=== PATIENT | female | born 1945 | race Caucasian/White ===

== ENCOUNTER 2016-09-22 10:57 | Emergency (ER) | payer MEDICARE, OTHER ==
[~2016-09-22] VITALS: Ht 160 cm; Wt 61.8 kg
[~2016-09-22 10:57] MED LIST: CHLO5CAP37 PO; CHOL50006 PO; DIAZ5 PO; DICY20TA10 PO; DYAZ37.5 PO; MAXA10TA2 PO; QUES4POW2 PO; REME15TA PO; SUMA50 PO; TIMO0.2517 EACH EYE; TOPA100T11 PO; ZOLO100T PO
[2016-09-22 11:00] VITALS: BP 118/83; PULSE 62; RESP 16; TEMP 98.2; O2SAT 97
[2016-09-22] MEDS ORDERED: OMEP20TA PO (11:23)
[2016-09-22] MEDS ORDERED: SUMA25TA2 PO (11:23)
--- NOTE | 2016-09-22 11:32 | PD ---
HPI Chief Complaint: Dizziness Time Seen by Provider: 11:29 Travel History International Travel<30 days: No Contact w/Intl Traveler<30days: No Traveled to known affect area: No History of Present Illness HPI Patient presents with complaints of more severe chronic vertigo. Undergoing physical therapy. Reports a history of migraines. Reports a headache last night for which she took rxrf-uqq-zlizlkl medication. Reports that the last time her vertigo was exacerbated she had a urinary tract infection. Reports urinary frequency. Denies any hematuria or pain on urination. Denies any nausea vomiting diarrhea or fever. No new rashes. She is not taking any meclizine. PFSH Past Medical History Hx Anticoagulant Therapy: No Arthritis: Yes Asthma: No Anxiety: Yes Depression: Yes Cancer: No Cardiovascular Problems: Yes (HTN) High Cholesterol: No Chest Pain: No Congestive Heart Failure: No COPD: No Cerebrovascular Accident: No Diabetes: No Diminished Hearing: No Diverticulitis: Yes Endocrine: No Gastrointestinal Disorders: Yes (IBS) GERD: No Genitourinary: Yes (frequent uti's) Headaches: Yes Hepatitis: No Hiatal Hernia: No Hypertension: Yes Immune Disorder: No Kidney Stones: Yes Musculoskeletal: Yes Neurologic: Yes Psychiatric: Yes Reproductive: No Respiratory: No Migraines: Yes Myocardial Infarction: No Renal Failure: No Seizures: No Sleep Apnea: No Thyroid Disease: No Ulcer: No Influenza Vaccination: No Menopausal: Yes Past Surgical History Abdominal Surgery: Yes (Bowel resection) Appendectomy: Yes Cardiac Surgery: No Cholecystectomy: Yes Ear Surgery: No Endocrine Surgery: No Eye Surgery: No Genitourinary Surgery: No Gynecologic Surgery: Yes (HYSTERECTOMY) Hysterectomy: Yes Oral Surgery: No Thoracic Surgery: No Other Surgery: Yes Social History Alcohol Use: No Tobacco Use: Yes (1 ppd of cigs) Substance Use: No Allergies-Medications (Allergen,Severity, Reaction): Coded Allergies: No Known Allergies (Verified , 09/22/16) Reported Meds & Prescriptions Reported Meds & Active Scripts Active Zoloft (Sertraline HCl) 100 Mg Tab 100 Mg PO 1 1/2 DAILY Valium (Diazepam) 5 Mg Tab 5 Mg PO BID PRN Reported Omeprazole 20 Mg Tab 20 Mg PO BID Sumatriptan (Sumatriptan Succinate) 25 Mg Tab 25 Mg PO ONCE PRN If a satisfactory response has not been obtained at 2 hours, a second dose may be administered Timolol Maleate (Timolol Maleate (Ophth)) 0.25 % Vidhya 1 Drop EACH EYE HS Vitamin D (Cholecalciferol) 5,000 Unit Tab 5,000 Units PO DAILY Maxalt (Rizatriptan Benzoate) 10 Mg Tab 10 Mg PO DAILY Dicyclomine (Dicyclomine HCl) 20 Mg Tab 20 Mg PO TID Questran (Cholestyramine) 4 Gm/Dose Powd 4 Gm PO BID 1 level scoopful of powder contains 4 grams of cholestyramine. Dyazide (Triamterene-Hydrochlorothiazide) 37.5-25 Mg Cap 1 Cap PO DAILY Chlordiazepoxide-Clidinium 5-2.5 Mg Cap 1 Cap PO TID Review of Systems General / Constitutional: No: Fever Eyes: No: Visual changes HENT: No: Headaches Cardiovascular: No: Chest Pain or Discomfort Respiratory: No: Shortness of Breath Gastrointestinal: No: Abdominal Pain Genitourinary: Positive: Frequency, No: Dysuria Musculoskeletal: No: Pain Skin: No Rash Neurologic: No: Weakness Psychiatric: No: Depression Endocrine: No: Polydipsia Hematologic/Lymphatic: No: Easy Bruising Physical Exam Narrative GENERAL: Well-nourished, well-developed patient. SKIN: Focused skin assessment warm/dry. HEAD: Normocephalic. EYES: No scleral icterus. No injection or drainage. NECK: Supple, trachea midline. No JVD or lymphadenopathy. CARDIOVASCULAR: Regular rate and rhythm without murmurs, gallops, or rubs. RESPIRATORY: Breath sounds equal bilaterally. No accessory muscle use. GASTROINTESTINAL: Abdomen soft, non-tender, nondistended. MUSCULOSKELETAL: No cyanosis, or edema. BACK: Nontender without obvious deformity. No CVA tenderness. Data Data Last Documented VS Vital Signs Date Time Temp Pulse Resp B/P Pulse Ox O2 Delivery O2 Flow Rate FiO2 09/22/16 11:00 98.2 62 16 118/83 97 Orders Urinalysis - C+S If Indicated (09/22/16 11:29) Cath For Specimen (09/22/16 11:43) Labs Laboratory Tests Test 09/22/16 11:50 Urine Collection Type CATH Urine Color YELLOW Urine Turbidity CLEAR Urine pH 5.5 Urine Specific [place] 1.019 Urine Protein NEG mg/dL Urine Glucose (UA) NEG mg/dL Urine Ketones NEG mg/dL Urine Occult Blood NEG Urine Nitrite NEG Urine Bilirubin NEG Urine Leukocyte Esterase NEG Urine Squamous Epithelial 0-5 /hpf Cells Urine Transitional Epithelial 0-5 /hpf Cells Urine Amorphous Sediment FEW Microscopic Urinalysis Comment CATH-CULT NOT IND Urine Collection Time 1150 MDM Medical Decision Making Medical Screen Exam Complete: Yes Emergency Medical Condition: Yes Differential Diagnosis UTI, BPV, migraines Narrative Course Assessment and plan discussed with patient and daughter at bedside. EKG NSR with bradycardia rate 55. Diagnosis Primary Impression: BPV (benign positional vertigo) Qualified Code: H81.10 - BPV (benign positional vertigo), unspecified laterality Additional Impression: Cephalgia Qualified Code: R51 - Chronic nonintractable headache, unspecified headache type Patient Instructions: General Instructions Additional Instructions: Encouraged rest and fluids. Encouraged to continue physical therapy. Encouraged to follow-up with her primary care provider for further workup. Scripts Jrrlfhuuor-Kcbxfijtpbvwm-Dgfbyzmf (Fioricet)50-300-40 Mg Cap1 Cap PO Q4H PRN ( HEADACHE) #10 CAP Ref 0 Prov:Keith Moreno MD 09/22/16 Meclizine 25 Mg Tab25 Mg PO TID PRN (VERTIGO) #30 TAB Ref 0 Prov:Keith Moreno MD 09/22/16 Disposition: 01 DISCHARGE HOME Condition: Good Keith Moreno MD September 22, 2016 11:32
[2016-09-22 12:01] LABS: BLOOD, URINE NEG (NEG); GLUCOSE,URINE NEG (NEG); KETONE, URINE NEG (NEG); NITRITE,URINE NEG (NEG); PH, URINE 5.5 (5.0-8.5)
[2016-09-22 12:08] LABS: COMMENT (UR) CATH-CULT NOT IND; CULTURE IF INDICATED CATH CULTURE NOT IND; METHOD OF COLLECTION CATH; SQUAMOUS EPITHELIAL CELL URINE 0-5 /hpf (0-5); TRANSITIONAL EPI CELLS, URINE 0-5 /hpf; URINE COLOR YELLOW (YELLW/STRAW)
[2016-09-22] MEDS ORDERED: MECL-62 PO (12:21)
[2016-09-22] MEDS ORDERED: BUTA1CAP PO (12:21)
[2016-09-22 12:37] VITALS: BP 135/76; PULSE 54; RESP 16; O2SAT 98
--- NOTE | 2016-09-23 13:15 | EKG ---
Date Performed: 09/22/2016 Time Performed: 11:15:20 PTAGE: 71 years EKG: Sinus bradycardia Extensive ST-T changes are nonspecific Low QRS voltages in precordial taya ds Borderline ECG Compared to prior tracing no significant change PREVIOUS TRACING : 06/25/2015 12.40 DOCTOR: Sonido Gomes Interpretating Date/Time 09/23/2016 13:13:36
== END 2016-09-22 12:53 | disposition home or self-care (01) ==
LOC: PHED 10:57
DX: H81.10 Benign paroxysmal vertigo, unspecified ear (principal); R51 Headache; I10 Essential (primary) hypertension; M19.90 Unspecified osteoarthritis, unspecified site; Z87.442 Personal history of urinary calculi
CPT/HCPCS: 81001; 93005; 99284; P9612

== ENCOUNTER 2016-11-11 12:25 | Emergency (ER) | payer MEDICARE, OTHER ==
[~2016-11-11] VITALS: Ht 157.5 cm; Wt 63.7 kg
[~2016-11-11 12:25] MED LIST changes: +BUTA1CAP PO; +MECL-62 PO; +OMEP20TA PO; -REME15TA PO; +SUMA25TA2 PO; -SUMA50 PO; -TOPA100T11 PO
[2016-11-11 12:36] VITALS: BP 206/112; PULSE 89; RESP 16; TEMP 98; O2SAT 96
[2016-11-11] MEDS ORDERED: TRIAMTERENE/HCTZ 37.5 MG/25 MG CAP PO ONE (12:45)
[2016-11-11] MEDS ORDERED: LIBRAX PO (12:46)
[2016-11-11] MEDS ORDERED: CHOL400D2 PO (12:46)
--- NOTE | 2016-11-11 12:47 | PD ---
HPI Chief Complaint: Hypertension Time Seen by Provider: 12:29 Travel History International Travel<30 days: No Contact w/Intl Traveler<30days: No Traveled to known affect area: No History of Present Illness HPI The patient is a 71-year-old female who presents emergency department for hypertension. The patient has a history of hypertension and was taking triamterene/hydrocodone for her blood pressure. However, she states her blood pressure fell and they subsequently took her off of the medication. The patient had a home health nurse at her house earlier today who took her blood pressure noted that her blood pressure was 200/100. The patient denies any symptoms such as headache, chest pain, shortness breath, nausea, vomiting, or focal deficits. The patient called her primary physician, Dr. Cleo Owens, who is going to call in her medications. However, they advised her to come to the emergency department for further evaluation of her elevated blood pressure. She denies any current symptoms. PFSH Past Medical History Hx Anticoagulant Therapy: No Arthritis: Yes Asthma: No Anxiety: Yes Depression: Yes Cancer: No Cardiovascular Problems: Yes (HTN) High Cholesterol: No Chest Pain: No Congestive Heart Failure: No COPD: No Cerebrovascular Accident: No Diabetes: No Diminished Hearing: No Diverticulitis: Yes Endocrine: No Gastrointestinal Disorders: Yes (IBS) GERD: No Genitourinary: Yes (frequent uti's) Headaches: Yes Hepatitis: No Hiatal Hernia: No Hypertension: Yes Immune Disorder: No Kidney Stones: Yes Musculoskeletal: Yes Neurologic: Yes Psychiatric: Yes Reproductive: No Respiratory: No Migraines: Yes Myocardial Infarction: No Renal Failure: No Seizures: No Sleep Apnea: No Thyroid Disease: No Ulcer: No ?: Not Menopausal: Yes Past Surgical History Abdominal Surgery: Yes (Bowel resection) Appendectomy: Yes Cardiac Surgery: No Cholecystectomy: Yes Ear Surgery: No Endocrine Surgery: No Eye Surgery: No Genitourinary Surgery: No Gynecologic Surgery: Yes (HYSTERECTOMY) Hysterectomy: Yes Oral Surgery: No Thoracic Surgery: No Other Surgery: Yes Social History Alcohol Use: No Tobacco Use: Yes (1 ppd of cigs) Substance Use: No Allergies-Medications (Allergen,Severity, Reaction): Coded Allergies: No Known Allergies (Verified , 11/11/16) Reported Meds & Prescriptions Reported Meds & Active Scripts Active Fioricet (Qfnncuoafk-Waitldoeloeuu-Amjgpzuz) 50-300-40 Mg Cap 1 Cap PO Q4H PRN Zoloft (Sertraline HCl) 100 Mg Tab 100 Mg PO 1 1/2 DAILY Valium (Diazepam) 5 Mg Tab 5 Mg PO BID PRN Reported Vitamin D (Cholecalciferol) 400 Unit/Ml Drops 400 Units PO DAILY Librax (Chlordiazepoxide/Clidinium) 5-2.5 Mg Cap 1 Cap PO TID Omeprazole 20 Mg Tab 20 Mg PO BID Sumatriptan (Sumatriptan Succinate) 25 Mg Tab 25 Mg PO ONCE PRN If a satisfactory response has not been obtained at 2 hours, a second dose may be administered Timolol Maleate (Timolol Maleate (Ophth)) 0.25 % Vidhya 1 Drop EACH EYE HS Maxalt (Rizatriptan Benzoate) 10 Mg Tab 10 Mg PO DAILY Dicyclomine (Dicyclomine HCl) 20 Mg Tab 20 Mg PO TID Questran (Cholestyramine) 4 Gm/Dose Powd 4 Gm PO DAILY 1 level scoopful of powder contains 4 grams of cholestyramine. Dyazide (Triamterene-Hydrochlorothiazide) 37.5-25 Mg Cap 1 Cap PO DAILY Review of Systems Except as stated in HPI: all other systems reviewed are Neg Eyes: No: Blurred Vision, Visual changes HENT: No: Headaches, Lightheadedness Cardiovascular: No: Chest Pain or Discomfort Respiratory: No: Shortness of Breath Gastrointestinal: No: Nausea, Vomiting Neurologic: No: Focal Abnormalities, Headache, Change in Mentation, Paresthesia , Sensory Disturbance Physical Exam Narrative GENERAL: Awake, alert, very pleasant 71-year-old female who appears her stated age and is in no acute respiratory distress. SKIN: Focused skin assessment warm/dry. HEAD: Atraumatic. Normocephalic. EYES: Pupils equal and round. Pupils are 3 mm bilateral and reactive. ENT: No nasal bleeding or discharge. Mucous membranes pink and moist. NECK: Trachea midline. No JVD. CARDIOVASCULAR: Regular rate and rhythm. No murmur appreciated. RESPIRATORY: No accessory muscle use. Clear to auscultation. Breath sounds equal bilaterally. GASTROINTESTINAL: Abdomen soft, non-tender, nondistended. No rebound tenderness. MUSCULOSKELETAL: No obvious deformities. No clubbing. No cyanosis. No edema. NEUROLOGICAL: Awake and alert. No obvious cranial nerve deficits. Motor grossly within normal limits. Normal speech. Nonfocal. Are 4. Follows commands without difficulty. PSYCHIATRIC: Appropriate mood and affect; insight and judgment normal. Data Data Last Documented VS Vital Signs Date Time Temp Pulse Resp B/P Pulse Ox O2 Delivery O2 Flow Rate FiO2 11/11/16 12:47 89 16 95 Room Air 11/11/16 12:36 98.0 206/112 Orders Basic Metabolic Panel (Bmp) (11/11/16 12:39) Electrocardiogram (11/11/16 ) Triamterene-Hctz 37.5-25 Mg (Dyazide 37. (11/11/16 12:45) Labs Laboratory Tests Test 11/11/16 12:59 Sodium Level 145 MEQ/L Potassium Level 3.9 MEQ/L Chloride Level 110 MEQ/L Carbon Dioxide Level 29.3 MEQ/L Anion Gap 6 MEQ/L Blood Urea Nitrogen 22 MG/DL Creatinine 1.00 MG/DL Estimat Glomerular Filtration 55 ML/MIN Rate Random Glucose 90 MG/DL Calcium Level 9.5 MG/DL [facility] Medical Decision Making Medical Screen Exam Complete: Yes Emergency Medical Condition: Yes Medical Record Reviewed: Yes Interpretation(s) EKG reveals normal sinus rhythm with a rate of 61. Nonspecific ST-T wave changes. Laboratory Tests Test 11/11/16 12:59 Sodium Level 145 MEQ/L Potassium Level 3.9 MEQ/L Chloride Level 110 MEQ/L Carbon Dioxide Level 29.3 MEQ/L Anion Gap 6 MEQ/L Blood Urea Nitrogen 22 MG/DL Creatinine 1.00 MG/DL Estimat Glomerular Filtration 55 ML/MIN Rate Random Glucose 90 MG/DL Calcium Level 9.5 MG/DL Differential Diagnosis Differential diagnosis includes hypertension, hypertensive urgency, hypertensive emergency, essential hypertension, acute renal failure, STEMI, cardiac ischemia, intracranial hemorrhage, malignant hypertension. Narrative Course A BMP was sent to lab. The patient was placed on cardiac telemetry monitoring and continuous pulse oximetry monitoring. EKG was ordered and interpreted. The patient was administered triamterene/hydrochlorothiazide and monitored in the emergency department. The patient's BMP revealed a creatinine 1 with GFR 55. The patient's blood pressure came down to 193/106. She was asymptomatic. She is advised to monitor blood pressure, keep a log, follow up with her primary physician. I will refill her triamterene and hydrochlorothiazide until she can be seen and evaluated by her primary physician. She will also be provided a copy of her BNP at discharge. Diagnosis Primary Impression: Hypertension Qualified Code: I10 - Essential hypertension Patient Instructions: General Instructions Additional Instructions: Please provide the patient a copy of her BNP at discharge. Follow-up with your primary physician. Blood pressure medications as directed. Med/Other Pt SpecificInfo: Prescription(s) given Scripts Triamterene-Hydrochlorothiazide 37.5-25 Mg Tab1 Tab PO DAILY #30 TAB Ref 0 Prov:Flo Cunningham MD 11/11/16 Disposition: 01 DISCHARGE HOME Condition: Stable Flo Cunningham MD Nov 11, 2016 12:47
[2016-11-11 13:17] LABS: POTASSIUM 3.9 MEQ/L (3.5-5.1)
[2016-11-11 13:20] LABS: BICARBONATE 29.3 MEQ/L (21.0-32.0)
[2016-11-11] MEDS ORDERED: TRIA37.5 PO (13:41)
[2016-11-11 13:56] VITALS: BP 180/109
--- NOTE | 2016-11-12 09:55 | EKG ---
Date Performed: 11/11/2016 Time Performed: 12:42:45 PTAGE: 71 years EKG: Sinus rhythm NONSPECIFIC ST & T-WAVE ABNORMALITY BORDERLINE ECG Compared to prior tracing no significant change PREVIOUS TRACING : 09/22/2016 11.15 DOCTOR: Sonido Gomes Interpretating Date/Time 11/12/2016 09:50:09
== END 2016-11-11 13:59 | disposition home or self-care (01) ==
LOC: PHED 12:25
DX: I10 Essential (primary) hypertension (principal); R94.31 Abnormal electrocardiogram [ECG] [EKG]; F17.200 Nicotine dependence, unspecified, uncomplicated; Z87.39 Personal history of other diseases of the musculoskeletal system and connective tissue; Z86.59 Personal history of other mental and behavioral disorders; Z86.79 Personal history of other diseases of the circulatory system; Z87.19 Personal history of other diseases of the digestive system; Z87.448 Personal history of other diseases of urinary system; Z86.69 Personal history of other diseases of the nervous system and sense organs
CPT/HCPCS: 80048; 93005; 99284

== ENCOUNTER 2017-02-15 09:07 | Observation (INO) | payer MEDICARE, OTHER ==
[2017-02-15] VITALS (9 sets, daily range): BP systolic 119–208; BP diastolic 75–105; PULSE 57–77; RESP 16–20; TEMP 97.5–98.4; O2SAT 96–99
[~2017-02-15] VITALS: Ht 157.5 cm; Wt 61.3 kg
[~2017-02-15 09:07] MED LIST changes: -CHLO5CAP37 PO; +CHOL400D2 PO; -CHOL50006 PO; +LIBRAX PO; -MECL-62 PO; +TRIA37.5 PO
--- NOTE | 2017-02-15 09:26 | PD ---
HPI Chief Complaint: Syncope/Near-Syncope Time Seen by Provider: 09:14 Travel History International Travel<30 days: No Contact w/Intl Traveler<30days: No Traveled to known affect area: No History of Present Illness HPI The patient was seen and examined in the presence of the nurse. This patient was complaining of feeling lightheaded and dizzy this morning. Duration 2 hours. She was walking her dog outside and she passed out and fell. She struck her head and face on the ground. She does have headache and facial pain but no neck pain. Did not have any chest pain or palpitations today. Symptoms severity is moderate. No alleviating factors. Unsteadiness was exacerbated by her lightheadedness. She takes no blood thinners PFSH Past Medical History Hx Anticoagulant Therapy: No Arthritis: Yes Asthma: No Anxiety: Yes Depression: Yes Cancer: No Cardiovascular Problems: Yes (HTN) High Cholesterol: No Chest Pain: No Congestive Heart Failure: No COPD: No Cerebrovascular Accident: No Diabetes: No Diminished Hearing: No Diverticulitis: Yes Endocrine: No Gastrointestinal Disorders: Yes (IBS) GERD: No Genitourinary: Yes (frequent uti's) Headaches: Yes Hepatitis: No Hiatal Hernia: No Hypertension: Yes Immune Disorder: No Kidney Stones: Yes Musculoskeletal: Yes Neurologic: Yes Psychiatric: Yes Reproductive: No Respiratory: No Migraines: Yes Myocardial Infarction: No Renal Failure: No Seizures: No Sleep Apnea: No Thyroid Disease: No Ulcer: No Menopausal: Yes Past Surgical History Abdominal Surgery: Yes (Bowel resection) Appendectomy: Yes Cardiac Surgery: No Cholecystectomy: Yes Ear Surgery: No Endocrine Surgery: No Eye Surgery: No Genitourinary Surgery: No Gynecologic Surgery: Yes (HYSTERECTOMY) Hysterectomy: Yes Oral Surgery: No Thoracic Surgery: No Other Surgery: Yes Social History Alcohol Use: No Tobacco Use: Yes (1 ppd of cigs) Substance Use: No Allergies-Medications (Allergen,Severity, Reaction): Coded Allergies: No Known Allergies (Verified , 11/11/16) Reported Meds & Prescriptions Reported Meds & Active Scripts Active Fioricet (Rwzoxzinxr-Owzoazrkxdlmh-Djpwaigs) 50-300-40 Mg Cap 1 Cap PO Q4H PRN Zoloft (Sertraline HCl) 100 Mg Tab 100 Mg PO 1 1/2 DAILY Valium (Diazepam) 5 Mg Tab 5 Mg PO BID PRN Reported Vitamin D (Cholecalciferol) 400 Unit/Ml Drops 400 Units PO DAILY Librax (Chlordiazepoxide/Clidinium) 5-2.5 Mg Cap 1 Cap PO TID Omeprazole 20 Mg Tab 20 Mg PO BID Sumatriptan (Sumatriptan Succinate) 25 Mg Tab 25 Mg PO ONCE PRN If a satisfactory response has not been obtained at 2 hours, a second dose may be administered Timolol Maleate (Timolol Maleate (Ophth)) 0.25 % Vidhya 1 Drop EACH EYE HS Maxalt (Rizatriptan Benzoate) 10 Mg Tab 10 Mg PO DAILY Dicyclomine (Dicyclomine HCl) 20 Mg Tab 20 Mg PO TID Questran (Cholestyramine) 4 Gm/Dose Powd 4 Gm PO DAILY 1 level scoopful of powder contains 4 grams of cholestyramine. Dyazide (Triamterene-Hydrochlorothiazide) 37.5-25 Mg Cap 1 Cap PO DAILY Review of Systems General / Constitutional: No: Fever Eyes: No: Visual changes HENT: Positive: Headaches, Lightheadedness Cardiovascular: Positive: Syncope, No: Chest Pain or Discomfort Respiratory: No: Shortness of Breath Gastrointestinal: No: Abdominal Pain Genitourinary: No: Dysuria Musculoskeletal: Positive: Pain Skin: No Rash Neurologic: Positive: Dizziness, Syncope, Headache Psychiatric: No: Depression Endocrine: No: Polydipsia Hematologic/Lymphatic: No: Easy Bruising Physical Exam Narrative GENERAL: Well-nourished, well-developed patient in no apparent distress. SKIN: Focused skin assessment reveals no rash and nodules. Skin is Warm and dry. HEAD: Prominent swollen area left brow. There is bruising and abrasion to the left forehead and left face. normocephalic. EYES: Pupils equal and round. No scleral icterus. No injection or drainage. ENT: No nasal bleeding or discharge. Mucous membranes pink and moist. NECK: Trachea midline. No JVD. No midline tenderness CARDIOVASCULAR: Regular rate and rhythm. No murmur appreciated. RESPIRATORY: No accessory muscle use. Clear to auscultation. Breath sounds equal bilaterally. GASTROINTESTINAL: Abdomen soft, non-tender, nondistended. Hepatic and splenic margins not palpable. MUSCULOSKELETAL: No obvious deformities. No clubbing. No cyanosis. No edema. NEUROLOGICAL: Awake and alert. No obvious cranial nerve deficits. Motor grossly within normal limits. Normal speech. PSYCHIATRIC: Appropriate mood and affect; insight and judgment normal. Data Data Last Documented VS Vital Signs Date Time Temp Pulse Resp B/P (MAP) Pulse Ox O2 Delivery O2 Flow Rate FiO2 02/15/17 09:28 Room Air 02/15/17 09:12 98.4 77 16 143/92 (109) 99 Orders Orders Electrocardiogram (02/15/17 09:22) Basic Metabolic Panel (Bmp) (02/15/17:22) Complete Blood Count With Diff (02/15/17:) Act Partial Throm Time (Ptt) (02/15/17:) Prothrombin Time / Inr (Pt) (02/15/17:) Ct Brain W/O Iv Contrast(Rout) (02/15/17:) Ecg Monitoring (02/15/17:) Iv Access Insert/Monitor (02/15/17:) Oximetry (02/15/17:) Sodium Chloride 0.9% Flush (Ns Flush) (02/15/17 09:30) Ct Facial Bones W/O Iv Cont (02/15/17 ) Labs Laboratory Tests Test 02/15/17 09:25 White Blood Count 8.3 TH/MM3 Red Blood Count 4.33 MIL/MM3 Hemoglobin 13.8 GM/DL Hematocrit 40.2 % Mean Corpuscular Volume 92.7 FL Mean Corpuscular Hemoglobin 31.8 PG Mean Corpuscular Hemoglobin Concent 34.3 % Red Cell Distribution Width 14.2 % Platelet Count 144 TH/MM3 Mean Platelet Volume 8.8 FL Neutrophils (%) (Auto) 58.4 % Lymphocytes (%) (Auto) 29.3 % Monocytes (%) (Auto) 7.7 % Eosinophils (%) (Auto) 3.6 % Basophils (%) (Auto) 1.0 % Neutrophils # (Auto) 4.8 TH/MM3 Lymphocytes # (Auto) 2.4 TH/MM3 Monocytes # (Auto) 0.6 TH/MM3 Eosinophils # (Auto) 0.3 TH/MM3 Basophils # (Auto) 0.1 TH/MM3 CBC Comment DIFF FINAL Differential Comment Prothrombin Time 10.2 SEC Prothromb Time International Ratio 0.9 RATIO Activated Partial Thromboplast Time 22.3 SEC Blood Urea Nitrogen 20 MG/DL Creatinine 1.02 MG/DL Random Glucose 100 MG/DL Calcium Level 9.4 MG/DL Sodium Level 131 MEQ/L Potassium Level 3.8 MEQ/L Chloride Level 99 MEQ/L Carbon Dioxide Level 24.4 MEQ/L Anion Gap 8 MEQ/L Estimat Glomerular Filtration Rate 53 ML/MIN MDM Medical Decision Making Medical Screen Exam Complete: Yes Emergency Medical Condition: Yes Medical Record Reviewed: Yes Differential Diagnosis Cardiac arrhythmia, vasovagal episode, vertigo Narrative Course I have reviewed the patient's electronic medical record. Patient has history of thrombocytopenia in 2016 IV placed CBC is normal Metabolic profile is normal Coagulation studies are normal Brain CT is negative for hemorrhage or fracture Facial bone CT is negative for fracture Extended cardiac monitoring reveals sinus rhythm without ectopy I reviewed her EKG which shows sinus rhythm without ectopy Patient is neurologically intact C-spine is cleared clinically, pain is not a distracting injury. Patient has been having dizzy and lightheaded spells on and off for some time. She's had similar events. The some recurrent problem going on that has not been evaluated. She had simply to the point of falling flat on her face and I think she will need observation to rule out cardiac arrhythmia or some other treatable cause. Call has been placed to hospitalist to discuss Diagnosis Primary Impression: Syncope Qualified Codes: R55 - Syncope and collapse Additional Impressions: Head injury Qualified Codes: S09.90XA - Unspecified injury of head, initial encounter Contusion of face Qualified Codes: S00.83XA - Contusion of other part of head, initial encounter Admitting Information Admitting Physician Requests: Observation Jm Martinez MD Feb 15, 2017 09:26
[2017-02-15] MEDS ORDERED: SODIUM CHLORIDE 0.9% FLUSH 10 ML FLUSH IVF PRN (09:30)
[2017-02-15 09:49] LABS: AUTOMATED NEUTROPHIL # 4.8 TH/MM3 (1.8-7.7); BASOPHIL # 0.1 TH/MM3 (0-0.2); EOSINOPHIL # 0.3 TH/MM3 (0-0.4); EOSINOPHIL % 3.6 % (0.0-4.0); HEMATOCRIT 40.2 % (35.0-46.0); HEMO FLAGS DIFF FINAL; LYMPH % 29.3 % (9.0-44.0); LYMPHOCYTE # 2.4 TH/MM3 (1.0-4.8); MEAN CELL VOLUME 92.7 FL (80.0-100.0); MEAN CORPUSCULAR HEMOGLOBIN 31.8 PG (27.0-34.0); MEAN CORPUSCULAR HGB CONC 34.3 % (32.0-36.0); MONO % 7.7 % (0.0-8.0); NEUT % 58.4 % (16.0-70.0); PLATELET COUNT 144 TH/MM3 (150-450); RED BLOOD COUNT 4.33 MIL/MM3 (4.00-5.30); RED CELL DISTRIBUTION WIDTH 14.2 % (11.6-17.2); WHITE BLOOD COUNT 8.3 TH/MM3 (4.0-11.0)
--- NOTE | 2017-02-15 09:51 | RADRPT ---
EXAM DATE/TIME: 02/15/2017 09:39 [facility] COMPARISON: CT BRAIN W/O CONTRAST, February 03, 2016, 11:49. INDICATIONS : Syncopal episode; left eye laceration. RADIATION DOSE: 32.57 CTDIvol (mGy) MEDICAL HISTORY : None SURGICAL HISTORY : Hysterectomy. ENCOUNTER: Initial ACUITY: 1 day PAIN SCALE: 5/10 LOCATION: cranial TECHNIQUE: Multiple contiguous axial images were obtained of the head. Using automated exposure control and adj ustment of the mA and/or kV according to patient size, radiation dose was kept as low as reasonably a chievable to obtain optimal diagnostic quality images. DICOM format image data is available electro nically for review and comparison. FINDINGS: CEREBRUM: The ventricles are normal for age. There is bilateral cortical atrophy which is stable compared to th e prior study. No evidence of midline shift, mass lesion, hemorrhage or acute infarction. No extra- axial fluid collections are seen. POSTERIOR FOSSA: The cerebellum and brainstem are intact. The 4th ventricle is midline. The cerebellopontine angle i s unremarkable. EXTRACRANIAL: The visualized portion of the orbits is intact. Soft tissue swelling over the left orbit. SKULL: The calvaria is intact. No evidence of skull fracture. CONCLUSION: 1. No acute intracranial hemorrhage. 2. Stable bilateral cortical atrophy. 3. Soft tissue swelling over the left orbit. José Luis Bradley MD on February 15, 2017 at 9:49 Board Certified Radiologist. This report was verified electronically.
[2017-02-15 09:57] LABS: APTT (PATIENT) 22.3 SEC (24.3-30.1); INTERNATIONAL NORMALIZED RATIO 0.9 RATIO; PROTHROMBIN TIME - PATIENT 10.2 SEC (9.8-11.6)
[2017-02-15 09:58] LABS: BICARBONATE 24.4 MEQ/L (21.0-32.0); POTASSIUM 3.8 MEQ/L (3.5-5.1)
--- NOTE | 2017-02-15 10:01 | RADRPT ---
EXAM DATE/TIME: 02/15/2017 09:39 [facility] COMPARISON: No previous studies available for comparison. INDICATIONS : Syncopal episode; left eye laceration. RADIATION DOSE: 50.31 CTDIvol (mGy) MEDICAL HISTORY : None SURGICAL HISTORY : Hysterectomy. ENCOUNTER: Initial ACUITY: 1 day PAIN SCORE: 5/10 LOCATION: Left facial TECHNIQUE: Volumetric scanning of the facial bones was performed. Using automated exposure control and adjustme nt of the mA and/or kV according to patient size, radiation dose was kept as low as reasonably achiev able to obtain optimal diagnostic quality images. DICOM format image data is available electronicall y for review and comparison. FINDINGS: ORBITS: The orbital and infraorbital osseous structures are intact. The retroconal structures have a normal configuration. No radiopaque foreign bodies are seen. There is focal soft tissue swelling just above the left orbit. No radiopaque foreign bodies. NASAL BONE: The nasal bone and maxillary spine are intact ZYGOMATIC ARCHES: Symmetric without evidence of fracture. SINUSES: The maxillary, ethmoid and frontal sinuses are intact. No air-fluid levels seen. NASAL CAVITY: Nasal septal deviation to the left. SOFT TISSUES: Soft-tissue swelling over the left orbit. INTRACRANIAL: No intracranial air seen. CRIBIFORM PLATE: Grossly intact. 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 CONCLUSION: 1. Focal soft tissue swelling over the left orbit. 2. No acute bony fractures. José Luis Bradley MD on February 15, 2017 at 9:58 Board Certified Radiologist. This report was verified electronically.
[2017-02-15] MEDS ORDERED: NALOXONE HCL 0.4 MG/ML AMP IV PUSH PRN (11:30)
[2017-02-15] MEDS ORDERED: LACTULOSE SYRUP 20 GM/30 ML CUP PO PRN (11:30)
[2017-02-15] MEDS ORDERED: SENNOSIDES 8.6 MG TAB PO PRN (11:30)
[2017-02-15] MEDS ORDERED: MAGNESIUM HYDROXIDE SUSP 30 ML CUP PO PRN (11:30)
[2017-02-15] MEDS ORDERED: SODIUM CHLORIDE 0.9% FLUSH 10 ML FLUSH IV FLUSH PRN (11:30)
[2017-02-15] MEDS ORDERED: BISACODYL 10 MG SUPP RECTAL PRN (11:30)
[2017-02-15] MEDS ORDERED: ONDANSETRON HCL 4 MG/2 ML VIAL IVP PRN (11:30)
--- NOTE | 2017-02-15 11:56 | RADRPT ---
EXAM DATE/TIME: 02/15/2017 11:46 [facility] COMPARISON: No previous studies available for comparison. INDICATIONS : Pain from fall. MEDICAL HISTORY : Osteoporosis. SURGICAL HISTORY : None. ENCOUNTER: Initial ACUITY: 1 day PAIN SCORE: 1/10 LOCATION: Left entire hand. FINDINGS: Three view examination of the left hand demonstrates no soft tissue swelling, dislocation, or fractur e. The carpal bones appear intact. There is primary degenerative changes at the first carpometacarp al joint. There are mild degenerative changes of the DIP joints. CONCLUSION: Mild primary degenerative changes of the hand and wrist. No acute fracture or joint dislocation. José Luis Bradley MD on February 15, 2017 at 11:53 Board Certified Radiologist. This report was verified electronically.
[2017-02-15 12:56] LABS: INDIRECT BILIRUBIN 0.2 MG/DL (0.0-0.8); TOTAL BILIRUBIN ADULT 0.3 MG/DL (0.2-1.0)
--- NOTE | 2017-02-15 14:31 | HHI.HP ---
HPI [facility] Primary Care Physician Cleo Owens MD Admission Diagnosis syncope recurrent Diagnoses: Chief Complaint: Syncope Travel History International Travel<30 Days: No Contact w/Intl Traveler <30 Da: No Traveled to Known Affected Are: No History of Present Illness Written by Reji Rendon, acting as scribe for Dr. Gustafson on 02/15/17 at 14:31. 71-year-old female with past medical history of chronic headaches, IBS, HTN, anxiety/depression, sciatica, glaucoma who presented after syncopal episode. The patient states that she was walking her dog and passed out and fell. She denies any symptoms prior to passing out. She states that she remembers walking along in the next thing she remembers is she was on the ground and bleeding. She is not sure how long she passed out for. She states that she is always lightheaded and occasionally has dizzy episodes and falling but has never lost consciousness before. She states she has been feeling in her normal state of health lately. She denies any chest pain, shortness breath, palpitations, fever, chills, nausea, vomiting, dysuria. She has had occasional night sweats in the past month. She has IBS and has been having no intermittent diarrhea and abdominal cramping, although denies any acute worsening. She has daily headaches when she wakes up which she takes medications for, denies any acute changes. She denies any new medications or change in medications recently. She did finish an antibiotic for a tooth infection a few days ago, no tooth pain now. Currently she does complain of some left-sided discomfort from where she fell. Denies any history of heart disease. Patient was recently started last month on Tylenol No. 3 for sciatic pain by her PCP. Review of Systems Except as stated in HPI: all other systems reviewed are Neg Past Family Social History Past Medical History Hypertension Chronic headaches/migraines Anxiety/depression Irritable bowel syndrome Sciatica Glaucoma Past Surgical History Hysterectomy Cholecystectomy Appendectomy Cataract surgery Bowel resection Reported Medications Reported Meds & Active Scripts Active Zoloft (Sertraline HCl) 100 Mg Tab 100 Mg PO 1 1/2 DAILY Valium (Diazepam) 5 Mg Tab 5 Mg PO BID PRN Reported Vitamin D (Cholecalciferol) 400 Unit/Ml Drops 400 Units PO DAILY Librax (Chlordiazepoxide/Clidinium) 5-2.5 Mg Cap 1 Cap PO TID Sumatriptan (Sumatriptan Succinate) 25 Mg Tab 25 Mg PO ONCE PRN If a satisfactory response has not been obtained at 2 hours, a second dose may be administered Timolol Maleate (Timolol Maleate (Ophth)) 0.25 % Vidhya 1 Drop EACH EYE HS Dicyclomine (Dicyclomine HCl) 20 Mg Tab 20 Mg PO TID Questran (Cholestyramine) 4 Gm/Dose Powd 4 Gm PO DAILY 1 level scoopful of powder contains 4 grams of cholestyramine. Dyazide (Triamterene-Hydrochlorothiazide) 37.5-25 Mg Cap 1 Cap PO DAILY Allergies: Coded Allergies: No Known Allergies (Verified , 11/11/16) Active Ordered Medications Current Medications Medications (Trade) Dose Ordered Sig/Sandhya Route Start Time Stop Time Status Last Admin (NS Flush) 2 ml UNSCH PRN IVF 02/15/17 09:30 (NS Flush) 2 ml UNSCH PRN IV FLUSH 02/15/17 11:30 (NS Flush) 2 ml BID IV FLUSH 02/15/17 21:00 (Zofran Inj) 4 mg Q6H PRN IVP 02/15/17 11:30 (Narcan Inj) 0.4 mg UNSCH PRN IV PUSH 02/15/17 11:30 (Milk Of Magnesia Liq) 30 ml Q12H PRN PO 02/15/17 11:30 (Senokot) 17.2 mg Q12H PRN PO 02/15/17 11:30 (Dulcolax Supp) 10 mg DAILY PRN RECTAL 02/15/17 11:30 (Lactulose Liq) 30 ml DAILY PRN PO 02/15/17 11:30 (Tylenol) 650 mg Q4H PRN PO 02/15/17 12:45 Family History Father of kidney failure Mother of heart disease in her 80s Social History Smokes three quarters of a pack per day since age 18 Denies any alcohol use or drug use Lives at home with family Physical Exam Vital Signs Vital Signs Date Time Temp Pulse Resp B/P (MAP) Pulse Ox O2 Delivery O2 Flow Rate FiO2 02/15/17 12:33 97.8 63 20 133/79 (97) 97 208/98 (134) 176/105 (128) 02/15/17 11:45 58 16 159/82 (107) 98 02/15/17 09:28 Room Air 02/15/17 09:12 98.4 77 16 143/92 (109) 99 Physical Exam GENERAL: Well-developed well-nourished. In no acute distress. SKIN: Warm and dry. Skin tear right elbow. Superficial laceration with some swelling of the left eyebrow. Superficial abrasion on the chin. HEENT: Normocephalic. Pupils equal and round. EOMs intact. Mucous membranes pink and moist. CARDIOVASCULAR: Regular rate and rhythm. No murmur appreciated. RESPIRATORY: No accessory muscle use. Clear to auscultation. Breath sounds equal bilaterally. GASTROINTESTINAL: Abdomen soft, non-tender, nondistended. Bowel sounds x4. MUSCULOSKELETAL: No obvious deformities. No clubbing or cyanosis. No edema. NEUROLOGICAL: Awake and alert. No focal neurological deficits. Moves upper and lower extremities spontaneously. Normal speech. Strength 5/5. No pronator drift. PSYCHIATRIC: Appropriate mood and affect; insight and judgment normal. Laboratory Laboratory Tests Test 02/15/17 09:25 02/15/17 11:45 White Blood Count 8.3 Red Blood Count 4.33 Hemoglobin 13.8 Hematocrit 40.2 Mean Corpuscular Volume 92.7 Mean Corpuscular Hemoglobin 31.8 Mean Corpuscular Hemoglobin Concent 34.3 Red Cell Distribution Width 14.2 Platelet Count 144 Mean Platelet Volume 8.8 Neutrophils (%) (Auto) 58.4 Lymphocytes (%) (Auto) 29.3 Monocytes (%) (Auto) 7.7 Eosinophils (%) (Auto) 3.6 Basophils (%) (Auto) 1.0 Neutrophils # (Auto) 4.8 Lymphocytes # (Auto) 2.4 Monocytes # (Auto) 0.6 Eosinophils # (Auto) 0.3 Basophils # (Auto) 0.1 CBC Comment DIFF FINAL Differential Comment Prothrombin Time 10.2 Prothromb Time International Ratio 0.9 Activated Partial Thromboplast Time 22.3 Blood Urea Nitrogen 20 Creatinine 1.02 Random Glucose 100 Calcium Level 9.4 Sodium Level 131 Potassium Level 3.8 Chloride Level 99 Carbon Dioxide Level 24.4 Anion Gap 8 Estimat Glomerular Filtration Rate 53 Total Bilirubin 0.3 Direct Bilirubin 0.1 Indirect Bilirubin 0.2 Aspartate Amino Transf (AST/SGOT) 20 Alanine Aminotransferase (ALT/SGPT) 26 Alkaline Phosphatase 67 Total Protein 6.7 Albumin 3.3 Urine Opiates Screen POS Urine Barbiturates Screen NEG Urine Amphetamines Screen NEG Urine Benzodiazepines Screen POS Urine Cocaine Screen NEG Urine Cannabinoids Screen NEG Result Diagram: 02/15/1792402/15/17924 Imaging Last Impressions Head CT 02/15/17921 Signed Impressions: Service Date/Time: Wednesday, February 15, 2017 09:39 - CONCLUSION: 1. No acute intracranial hemorrhage. 2. Stable bilateral cortical atrophy. 3. Soft tissue swelling over the left orbit. José Luis Bradley MD Maxillofacial CT 02/15/17 0000 Signed Impressions: Service Date/Time: Wednesday, February 15, 2017 09:39 - CONCLUSION: 1. Focal soft tissue swelling over the left orbit. 2. No acute bony fractures. José Luis Bradley MD Hand X-Ray 02/15/17 0000 Signed Impressions: Service Date/Time: Wednesday, February 15, 2017 11:46 - CONCLUSION: Mild primary degenerative changes of the hand and wrist. No acute fracture or joint dislocation. MD Angela Butler VTE Risk Assessment Ivani VTE Risk Assessment: Mod/High Risk (score >= 2) Caprini Risk Assessment Model Point Value = 1 Point Value = 2 Point Value = 3 Point Value = 5 Age 41-60 Minor surgery BMI > 25 kg/m2 Swollen legs Varicose veins or History of unexplained or recurrent spontaneous Oral contraceptives or hormone replacement Sepsis (< 1 month) Serious lung disease, including pneumonia (< 1 month) Abnormal pulmonary function Acute myocardial infarction Congestive heart failure (< 1 month) History of inflammatory bowel disease Medical patient at bed rest Age 61-74 Arthroscopic surgery Major open surgery (> 45 min) Laparoscopic surgery (> 45 min) Malignancy Confined to bed (> 72 hours) Immobilizing plaster cast Central venous access Age >= 75 History of VTE Family history of VTE Factor V Leiden Prothrombin [id number] Lupus anticoagulant Anticardiolipin antibodies Elevated serum homocysteine Heparin-induced thrombocytopenia Other congenital or acquired thrombophilia Stroke (< 1 month) Elective arthroplasty Hip, pelvis, or leg fracture Acute spinal cord injury (< 1 month) Prophylaxis Regimen Total Risk Factor Score Risk Level Prophylaxis Regimen 0-1 Low Early ambulation 2 Moderate Order ONE of the following: *Sequential Compression Device (SCD) *Heparin 5000 units SQ BID 3-4 Higher Order ONE of the following medications: *Heparin 5000 units SQ TID *Enoxaparin/Lovenox 40 mg SQ daily (WT < 150 kg, CrCl > 30 mL/min) *Enoxaparin/Lovenox 30 mg SQ daily (WT < 150 kg, CrCl > 10-29 mL/min) *Enoxaparin/Lovenox 30 mg SQ BID (WT < 150 kg, CrCl > 30 mL/min) AND/OR *Sequential Compression Device (SCD) 5 or more Highest Order ONE of the following medications: *Heparin 5000 units SQ TID (Preferred with Epidurals) *Enoxaparin/Lovenox 40 mg SQ daily (WT < 150 kg, CrCl > 30 mL/min) *Enoxaparin/Lovenox 30 mg SQ daily (WT < 150 kg, CrCl > 10-29 mL/min) *Enoxaparin/Lovenox 30 mg SQ BID (WT < 150 kg, CrCl > 30 mL/min) AND *Sequential Compression Device (SCD) Assessment and Plan Assessment and Plan 71-year-old female with past medical history of chronic headaches, IBS, HTN, anxiety/depression, sciatica, glaucoma who presented after syncopal episode Syncope: Unclear etiology; differential includes dehydration, medication effect , possible primary neurocardiogenic event. Reviewed: Head CT with no acute process. Labs show signs of dehydration. UDS positive for benzodiazepines and opiates. EKG with nonspecific ST changes. -Trend cardiac enzymes and EKGs -Follow orthostatics -IVF -Check carotid ultrasound -Check EKG -Avoid sedating medications for now -Could consider cardiology evaluation depending on the above Fall: Head and maxillofacial CT showed soft tissue swelling over the left orbit with no fracture. -Check chest x-ray with rib pain and consider rib series -Continue local wound care for abrasions Dehydration: Sodium 131, BUN 20, EGFR 53. -Hold home diuretic and give IVF -Check electrolytes and follow-up BMP Hypertension: Blood pressure is labile. -Hold home diuretic -start nifedipine -Vasotec as needed IBS: Chronic, stable per patient. -Continue home dicyclomine and cholestyramine -Hold home Librax with possible benzo reaction DVT prophylaxis: SCDs Discussed Condition With Patient, ED staff, RN Attending Statement This note was transcribed by [email or web address] [Reji Rendon]. I, Dr. Puneet Gustafson personally performed the history, physical exam, and medical decision making; and confirmed the accuracy of the information in the transcribed note. Authenticated by Dr. Puneet Gustafson on 02/15/17 at 22:00. Reji Rendon Feb 15, 2017 14:31 Puneet Gustafson MD Feb 15, 2017 22:02
[2017-02-15] MEDS ORDERED: NIFEdipine 30 MG SUSTAINED RELEASE TAB PO ONE (14:45)
--- NOTE | 2017-02-15 15:47 | RADRPT ---
EXAM DATE/TIME: 02/15/2017 15:19 [facility] COMPARISON: No previous studies available for comparison. INDICATIONS : Syncope. MEDICAL HISTORY : Hypertension. Osteoporosis. Dizziness. Syncope. Migraine. Numbness. Diverticu litis. Kidney stones. Arthritis. Depression. Anxiety. SURGICAL HISTORY : Appendectomy. Cholecystectomy. Hysterectomy. Bowel resection. ENCOUNTER: Initial ACUITY: 1 day PAIN SCORE: 1/10 LOCATION: Bilateral neck PEAK SYSTOLIC VELOCITIES (cm/sec): ICA/CCA RATIO: Right: 1.9 Left: 1.7 ICA: Right: 76.8 Left: 80.2 CCA: Right: 40.1 Left: 46.9 ECA: Right: 48.8 Left: 112.9 VERTEBRAL: Right: 55.9 antegrade Left: 52.3 antegrade Elevated flow velocities and ICA/CCA ratios have been found to correlate with increased degrees of vessel stenosis, calculated as percentage of diameter relative to a normal segment of distal ICA/CCA FINDINGS: Ultrasound of the carotid arteries was performed bilaterally using real-time Doppler and color Dopple r imaging. Examination of the right carotid artery demonstrates mild fibrous plaque within the bifurcation. No w aveform abnormalities are identified and no spectral broadening is seen. Examination of the left mercedes tid artery demonstrates mild fibrous plaque within the bulb. No waveform abnormalities are identified and no spectral broadening is seen. There is antegrade flow in both vertebral arteries. CONCLUSION: No evidence of hemodynamically significant lesion. John Jim MD on February 15, 2017 at 15:45 Board Certified Radiologist. This report was verified electronically.
--- NOTE | 2017-02-15 15:56 | RADRPT ---
EXAM DATE/TIME: 02/15/2017 14:52 [facility] COMPARISON: CHEST SINGLE AP, June 25, 2015, 13:05. INDICATIONS : Chest and rib pain since yesterday. MEDICAL HISTORY : Hypertension. SURGICAL HISTORY : None. ENCOUNTER: Initial ACUITY: 1 day PAIN SCORE: 7/10 LOCATION: Left Chest and ribs FINDINGS: The cardiac silhouette is enlarged in transverse diameter. The lungs are free of acute parenchymal op acity. No effusions are identified. There is elevation of the right hemidiaphragm. CONCLUSION: 1. Cardiomegaly. No acute pulmonary disease. John Jim MD on February 15, 2017 at 15:54 Board Certified Radiologist. This report was verified electronically.
--- NOTE | 2017-02-15 16:17 | EKG ---
Date Performed: 02/15/2017 Time Performed: 15:14:31 PTAGE: 71 years EKG: Sinus rhythm NONSPECIFIC ST & T-WAVE ABNORMALITY BORDERLINE ECG INTERPRETATION BASED ON A DEFAULT AGE OF 40 YEARS No significant change from prior electrocardiogram. NO PREVIOUS TRACING DOCTOR: Mohsen Reddy Interpretating Date/Time 02/15/2017 16:15:35
--- NOTE | 2017-02-15 16:24 | EKG ---
Date Performed: 02/15/2017 Time Performed: 09:18:28 PTAGE: 71 years EKG: Sinus rhythm NONSPECIFIC ST & T-WAVE ABNORMALITY BORDERLINE ECG No significant change from prior electrocardiogra m. PREVIOUS TRACING : 11/11/2016 12.42 DOCTOR: Mohsen Reddy Interpretating Date/Time 02/15/2017 16:23:59
[2017-02-15 16:27] LABS: CREATINE KINASE 43 U/L (26-192)
[2017-02-15] MEDS: ACETAMINOPHEN/CODEINE 300 MG/30 MG TAB PO PRN ×2 (16:43→23:29)
--- NOTE | 2017-02-15 16:48 | RADRPT ---
EXAM DATE/TIME: 02/15/2017 16:29 [facility] COMPARISON: No previous studies available for comparison. INDICATIONS : Rib pain due to fall. MEDICAL HISTORY : Hypertension. Osteoporosis. Dizziness. Syncope. Migraine. Numbness. Diverticulitis. Kidney stones. Ar thritis. Depression. Anxiety SURGICAL HISTORY : Appendectomy. Cholecystectomy. Hysterectomy. Bowel resection ENCOUNTER: Initial ACUITY: 1 day PAIN SCORE: 10/10 LOCATION: Left ribs FINDINGS: The cardiac silhouette is enlarged in transverse diameter. The lungs are free of acute parenchymal op acity. No effusions are identified. There is eventration of the right hemidiaphragm. There is no evid ence of acute fracture. There is no evidence of pneumothorax. CONCLUSION: 1. There is no evidence of acute fracture. John Jim MD on February 15, 2017 at 16:45 Board Certified Radiologist. This report was verified electronically.
[2017-02-15] MEDS: ENALAPRILAT 1.25 MG/ML VIAL IV PUSH PRN (17:13)
[2017-02-15] MEDS: DICYCLOMINE HCL 20 MG TAB PO SCH (17:13)
--- NOTE | 2017-02-15 19:30 | MG ---
cc: BEVERLY POWER M.D. Lab No: Date: 02/15/2017 Age: 71 Sex: F Race: HISTORY: An EEG was obtained on this 71-year-old patient described as awake and being evaluated for syncope and dizziness. DESCRIPTION OF THE RECORD: This EEG is showing a lot of mid to high amplitude 10-12 per second alpha rhythms posteriorly. There is some intermixed 14-20 per second beta activity centrally and frontally. There are some alpha rhythms that at that time show some phase reversal, perhaps on the right more than left temporal head region but there is nothing else to suggest a paroxysmal discharge. Photic stimulation showed some bilateral driving response and hyperventilation was unremarkable. INTERPRETATION: Minimally abnormal EEG. There is some phase reversal but nothing to suggest paroxysmal discharges. Clinical correlation. Depending upon the clinical course, follow-up EEGs might be of benefit. Probably the study is benign. MD MEGAN Reyes/JAYCE /7:08 PM /7:23 PM
[2017-02-15] MEDS: ACETAMINOPHEN 325 MG TAB PO PRN (20:06)
[2017-02-15] MEDS: SODIUM CHLORIDE 0.9% FLUSH 10 ML FLUSH IV FLUSH SCH (20:06)
[2017-02-15] MEDS: TIMOLOL MALEATE 0.25% OPHT SOLN 5 ML BTL EACH EYE SCH (21:26)
[2017-02-16] VITALS (10 sets, daily range): BP systolic 123–151; BP diastolic 69–88; PULSE 60–84; RESP 16–17; TEMP 97.6–98.7; O2SAT 95–97
[2017-02-16] MEDS: SODIUM CHLORIDE 0.9% FLUSH 10 ML FLUSH IV FLUSH SCH ×2 (08:17→21:00)
[2017-02-16] MEDS: NIFEdipine 30 MG SUSTAINED RELEASE TAB PO SCH (08:17)
[2017-02-16] MEDS: CHOLESTYRAMINE 4 GM PACKET PO SCH (08:17)
[2017-02-16] MEDS: DICYCLOMINE HCL 20 MG TAB PO SCH ×3 (08:18→17:57)
[2017-02-16] MEDS: ACETAMINOPHEN 325 MG TAB PO PRN (08:18)
[2017-02-16 08:34] LABS: AUTOMATED NEUTROPHIL # 5.4 TH/MM3 (1.8-7.7); BASOPHIL % 0.6 % (0.0-2.0); EOSINOPHIL # 0.3 TH/MM3 (0-0.4); EOSINOPHIL % 3.2 % (0.0-4.0); HEMATOCRIT 40.7 % (35.0-46.0); HEMO FLAGS DIFF FINAL; LYMPH % 24.5 % (9.0-44.0); LYMPHOCYTE # 2.1 TH/MM3 (1.0-4.8); MEAN CELL VOLUME 92.4 FL (80.0-100.0); MEAN CORPUSCULAR HGB CONC 34.6 % (32.0-36.0); MONO % 8.3 % (0.0-8.0); NEUT % 63.4 % (16.0-70.0); PLATELET COUNT 135 TH/MM3 (150-450); RED CELL DISTRIBUTION WIDTH 14.2 % (11.6-17.2); WHITE BLOOD COUNT 8.6 TH/MM3 (4.0-11.0)
[2017-02-16 08:47] LABS: ALT (GPT) 21 U/L (10-53); ANION GAP 8 MEQ/L (5-15); AST (GOT) 15 U/L (15-37); BICARBONATE 26.9 MEQ/L (21.0-32.0); BLOOD UREA NITROGEN 25 MG/DL (7-18); CHLORIDE 96 MEQ/L (98-107); GLOMERULAR FILTRATION RATE 63 ML/MIN (>89); POTASSIUM 3.5 MEQ/L (3.5-5.1); SODIUM (NA) 131 MEQ/L (136-145)
[2017-02-16 08:50] LABS: ALKALINE PHOSPHATASE 96 U/L (45-117); TOTAL BILIRUBIN ADULT 0.2 MG/DL (0.2-1.0)
--- NOTE | 2017-02-16 09:17 | HHI.PR ---
Subjective Remarks Follow-up for syncope. The patient continues to have a headache, states is at her baseline with this. She does continue to have some left lower chest wall discomfort from where she fell but is worse whenever she coughs. Otherwise she has no acute complaints today. She states she's been ambulating here with no lightheadedness or dizziness. She has never seen a engineering project designer. She is hoping to go home soon. Objective Vitals Vital Signs Date Time Temp Pulse Resp B/P (MAP) Pulse Ox O2 Delivery O2 Flow Rate FiO2 02/16/17 07:25 98.4 70 16 123/69 (87) 97 02/16/17 04:15 97.9 60 16 140/74 (96) 96 02/16/17 04:03 64 02/16/17 00:02 67 02/15/17 23:26 97.5 64 17 119/75 (90) 96 02/15/17 21:25 14 02/15/17 20:03 57 02/15/17 19:32 97.9 64 16 151/80 (103) 96 145/84 (104) 145/90 (108) 02/15/17 17:55 155/90 (111) 02/15/17 17:04 190/87 (121) 02/15/17 16:00 68 02/15/17 12:33 97.8 63 20 133/79 (97) 97 208/98 (134) 176/105 (128) 02/15/17 11:45 58 16 159/82 (107) 98 02/15/17 09:28 Room Air I/O 02/15/17 02/15/17 02/15/17 02/16/17 02/16/17 02/16/17 07:00 15:00 23:00 07:00 15:00 23:00 Intake Total 500 ml 1440 ml Balance 500 ml 1440 ml Intake Oral 500 ml 1440 ml # Voids 3 3 Result Diagram: 02/16/1743 02/16/17742 Imaging Last Impressions Head CT 02/15/17921 Signed Impressions: Service Date/Time: Wednesday, February 15, 2017 09:39 - CONCLUSION: 1. No acute intracranial hemorrhage. 2. Stable bilateral cortical atrophy. 3. Soft tissue swelling over the left orbit. José Luis Bradley MD Ribs X-Ray 02/15/17 Signed Impressions: Service Date/Time: Wednesday, February 15, 2017 16:29 - CONCLUSION: 1. There is no evidence of acute fracture. John Jim MD Maxillofacial CT 02/15/17 Signed Impressions: Service Date/Time: Wednesday, February 15, 2017 09:39 - CONCLUSION: 1. Focal soft tissue swelling over the left orbit. 2. No acute bony fractures. José Luis Bradley MD Hand X-Ray 02/15/17 Signed Impressions: Service Date/Time: Wednesday, February 15, 2017 11:46 - CONCLUSION: Mild primary degenerative changes of the hand and wrist. No acute fracture or joint dislocation. José Luis Bradley MD Chest X-Ray 02/15/17 Signed Impressions: Service Date/Time: Wednesday, February 15, 2017 14:52 - CONCLUSION: 1. Cardiomegaly. No acute pulmonary disease. John Jim MD Carotid Artery Ultrasound 02/15/17 Signed Impressions: Service Date/Time: Wednesday, February 15, 2017 15:19 - CONCLUSION: No evidence of hemodynamically significant lesion. John Jim MD Objective Remarks GENERAL: Well-developed well-nourished. In no acute distress. SKIN: Warm and dry. Skin tear right elbow. Superficial laceration with some swelling of the left eyebrow. Superficial abrasion on the chin. HEENT: Normocephalic. Pupils equal and round. Mucous membranes pink and moist. CARDIOVASCULAR: Regular rate and rhythm. No murmur appreciated. RESPIRATORY: No accessory muscle use. Clear to auscultation. Breath sounds equal bilaterally. GASTROINTESTINAL: Abdomen soft, non-tender, nondistended. Bowel sounds x4. MUSCULOSKELETAL: No obvious deformities. No clubbing or cyanosis. No edema. Left lower anterior rib tender to palpation. NEUROLOGICAL: Awake and alert. No focal neurological deficits. Moves upper and lower extremities spontaneously. Normal speech. PSYCHIATRIC: Appropriate mood and affect; insight and judgment normal. A/P Assessment and Plan 71-year-old female with past medical history of chronic headaches, IBS, HTN, anxiety/depression, sciatica, glaucoma who presented after syncopal episode Syncope: Unclear etiology; differential includes dehydration, medication effect , possible primary neurocardiogenic event. Reviewed: Head CT with no acute process. Labs show signs of dehydration. UDS positive for benzodiazepines and opiates. EKG with nonspecific ST changes. Troponin negative 2. Carotid ultrasound with no significant stenosis. EEG minimally abnormal and probably benign. -Trending cardiac enzymes and EKGs -Follow orthostatics -IVF -Avoid sedating medications for now -Consulted cardiology, D/W Dr. Reddy, recommended EP evaluation tomorrow Fall: Head and maxillofacial CT showed soft tissue swelling over the left orbit with no fracture. Chest and rib x-rays with no fractures. -Continue local wound care for abrasions -Continue home Tylenol No. 3 for pain Dehydration: Sodium persistently 131, seems somewhat chronic. Creatinine 1.02, improved to 0.88 with IVF. No significant electrolyte abnormalities. -Hold home diuretic and give IVF Hypertension: Labile blood pressure is better controlled today. -Hold home diuretic -started nifedipine with good effect -Vasotec as needed IBS: Chronic, stable per patient. -Continue home dicyclomine and cholestyramine -Hold home Librax with possible benzo reaction DVT prophylaxis: SCDs Discharge Planning Follow-up cardiology recommendations. Reji Rendon Feb 16, 2017 09:17
[2017-02-16] MEDS: ACETAMINOPHEN/CODEINE 300 MG/30 MG TAB PO PRN ×2 (09:24→16:35)
--- NOTE | 2017-02-16 12:22 | ECHRPT ---
Indication: syncope CONCLUSIONS The left ventricular systolic function is normal with an estimated ejection fraction in the range of 55-60%. Normal left ventricular size. The interatrial septum not well visualized. Mild mitral annular calcification. Trace mitral valve regurgitation. No aortic valve regurgitation. No aortic valve stenosis. There is mild tricuspid valve regurgitation. The pulmonary valve is not well visualized. The inferior vena cava was not well visualized. A prominent epicardial fat pad is present. BP: / HR: Rhythm: MEASUREMENTS (Male / Female) Normal Values Technical Quality:Technically difficult study., Fa ir 2D ECHO LV Diastolic Diameter PLAX 4.0 cm 4.2 - 5.9 / 3.9 - 5.3 cm LV Systolic Diameter PLAX 3.0 cm IVS Diastolic Thickness 1.4 cm 0.6 - 1.0 / 0.6 - 0.9 cm LVPW Diastolic Thickness 1.1 cm 0.6 - 1.0 / 0.6 - 0.9 cm LV Relative Wall Thickness 0.6 RV Internal Dim ED PLAX 3.1 cm M-MODE Aortic Root Diameter MM 3.1 cm LA Systolic Diameter MM 3.2 cm LA Ao Ratio MM 1.0 AV Cusp Separation MM 2.0 cm DOPPLER Mitral E Point Velocity 43.9 cm/s Mitral A Point Velocity 53.3 cm/s Mitral E to A Ratio 0.8 LV E' Lateral Velocity 9.3 cm/s Mitral E to LV E' Lateral Ratio 4.7 LV E' Septal Velocity 9.0 cm/s Mitral E to LV E' Septal Ratio 4.9 TR Peak Velocity 262.0 cm/s TR Peak Gradient 27.5 mmHg Right Atrial Pressure 10.0 mmHg Pulmonary Artery Systolic Pressu 37.5 mmHg Right Ventricular Systolic Press 37.5 mmHg FINDINGS LEFT VENTRICLE The left ventricular systolic function is normal with an estimated ejection fraction in the range of 55-60%. Normal left ventricular size. RIGHT VENTRICLE Normal right ventricular size and systolic function. LEFT ATRIUM The left atrial size is normal. RIGHT ATRIUM The right atrial size is normal. ATRIAL SEPTUM The interatrial septum not well visualized. Normal atrial septal thickness without atrial level shunting by limited color doppler interrogation. AORTA The aortic root and proximal ascending aorta are normal in size on limited imaging. MITRAL VALVE Mild mitral annular calcification. Trace mitral valve regurgitation. AORTIC VALVE Trileaflet aortic valve. No aortic valve regurgitation. No aortic valve stenosis. TRICUSPID VALVE Structurally normal tricuspid valve. There is mild tricuspid valve regurgitation. PULMONARY VALVE The pulmonary valve is not well visualized. No pulmonary valve regurgitation or stenosis. VESSELS The inferior vena cava was not well visualized. PERICARDIUM No pericardial effusion. A prominent epicardial fat pad is present. Mohsen Reddy MD (Electronically Signed) Final Date:16 February 2017 12:20
--- NOTE | 2017-02-16 12:53 | PD.CONS ---
HPI Consult Requested By Reason for Consult Syncope Primary Care Physician Cleo Owens MD History of Present Illness I have reviewed the patient's chart. She is a pleasant 71-year-old white woman I am seeing for syncope. The patient does note some mild chronic imbalance. She also sometimes will get mildly lightheaded if she stands up but has not passed out. She was walking her dog yesterday when she suddenly found herself on the floor. This apparently was witnessed by a neighbor. She was severely bruised and has a black eye. There was no incontinence or seizure activity and she had no symptoms before or after. She otherwise is moderately active without any other cardiopulmonary history. EKG showed sinus rhythm with nonspecific ST-T wave changes. Echocardiogram reveals normal LV function without significant valvular disease. Review of Systems Consitutional: DENIES: Fatigue Eyes: DENIES: Amaurosis Fugax HEENT: COMPLAINS OF: Lightheadedness Respiratory: DENIES: Cough, Snoring Cardiovascular: COMPLAINS OF: Syncope Genitourinary: DENIES: Urinary incontinence Neurologic: COMPLAINS OF: Memory problems, Poor Balance, DENIES: Tingling or numbness Musculoskeletal: COMPLAINS OF: Joint pain Psychiatric: COMPLAINS OF: Depression, DENIES: Anxiety Past Family Social History Allergies: Coded Allergies: No Known Allergies (Verified , 11/11/16) Past Medical History Hypertension Depression Glaucoma Tobacco abuse Past Surgical History Appendectomy Cholecystectomy Hysterectomy Colon resection for adhesions Bilateral cataracts Reported Medications Reported Meds & Active Scripts Active Fioricet (Hsskmdmqfp-Qssqnkxdgwzqs-Imvavvhm) 50-300-40 Mg Cap 1 Cap PO Q4H PRN Zoloft (Sertraline HCl) 100 Mg Tab 100 Mg PO 1 1/2 DAILY Valium (Diazepam) 5 Mg Tab 5 Mg PO BID PRN Reported Vitamin D (Cholecalciferol) 400 Unit/Ml Drops 400 Units PO DAILY Librax (Chlordiazepoxide/Clidinium) 5-2.5 Mg Cap 1 Cap PO TID Omeprazole 20 Mg Tab 20 Mg PO BID Sumatriptan (Sumatriptan Succinate) 25 Mg Tab 25 Mg PO ONCE PRN If a satisfactory response has not been obtained at 2 hours, a second dose may be administered Timolol Maleate (Timolol Maleate (Ophth)) 0.25 % Vidhya 1 Drop EACH EYE HS Maxalt (Rizatriptan Benzoate) 10 Mg Tab 10 Mg PO DAILY Dicyclomine (Dicyclomine HCl) 20 Mg Tab 20 Mg PO TID Questran (Cholestyramine) 4 Gm/Dose Powd 4 Gm PO DAILY 1 level scoopful of powder contains 4 grams of cholestyramine. Dyazide (Triamterene-Hydrochlorothiazide) 37.5-25 Mg Cap 1 Cap PO DAILY Active Ordered Medications Current Medications Medications (Trade) Dose Ordered Sig/Sandhya Route Start Time Stop Time Status Last Admin (NS Flush) 2 ml UNSCH PRN IV FLUSH 02/15/17 11:30 (NS Flush) 2 ml BID IV FLUSH 02/15/17 21:00 02/16/17 08:17 (Zofran Inj) 4 mg Q6H PRN IVP 02/15/17 11:30 (Narcan Inj) 0.4 mg UNSCH PRN IV PUSH 02/15/17 11:30 (Milk Of Magnesia Liq) 30 ml Q12H PRN PO 02/15/17 11:30 (Senokot) 17.2 mg Q12H PRN PO 02/15/17 11:30 (Dulcolax Supp) 10 mg DAILY PRN RECTAL 02/15/17 11:30 (Lactulose Liq) 30 ml DAILY PRN PO 02/15/17 11:30 (Tylenol) 650 mg Q4H PRN PO 02/15/17 12:45 02/16/17 08:18 (Questran 4 Gm Pkt) 4 gm DAILY PO 02/16/17 09:00 02/16/17 08:17 (Bentyl) 20 mg TID PO 02/15/17 18:00 02/16/17 08:18 (Timoptic 0.25% Opth Soln) 1 drop HS EACH EYE 02/15/17 21:00 02/15/17 21:26 (Vasotec Inj) 1.25 mg Q6H PRN IV PUSH 02/15/17 14:45 02/15/17 17:13 (Procardia Xl) 30 mg DAILY PO 02/16/17 09:00 02/16/17 08:17 (Tylenol-Codeine #3) 1 tab Q6H PRN PO 02/15/17 16:15 02/16/17 09:24 Family History Noncontributory Social History The patient is . She smokes three quarters of a pack per day and rarely drinks. Physical Exam Vital Signs Vital Signs Date Time Temp Pulse Resp B/P (MAP) Pulse Ox O2 Delivery O2 Flow Rate FiO2 02/16/17 11:20 97.6 78 16 142/70 (94) 95 02/16/17 08:00 63 02/16/17 07:25 98.4 70 16 123/69 (87) 97 02/16/17 04:15 97.9 60 16 140/74 (96) 96 02/16/17 04:03 64 02/16/17 00:02 67 02/15/17 23:26 97.5 64 17 119/75 (90) 96 02/15/17 21:25 14 02/15/17 20:03 57 02/15/17 19:32 97.9 64 16 151/80 (103) 96 145/84 (104) 145/90 (108) 02/15/17 17:55 155/90 (111) 02/15/17 17:04 190/87 (121) 02/15/17 16:00 68 Physical Exam CONSTITUTIONAL: A well-developed, well-nourished patient in no apparent distress. She is bruised and has a black eye. EYES: Conjunctiva normal. Sclera nonicteric. Eyelids normal. No xanthelasma. HEENT: Oral mucosa normal without pallor or cyanosis. NECK: JVD less than or equal to 5 cm of water. RESPIRATORY: Breathing is unlabored without accessory muscle use. Normal breath sounds. No wheezes, rales or rubs present. CARDIOVASCULAR: Normal point of maximal impulse. No cardiac thrill present. Regular rate and rhythm. No murmurs, gallops, rubs or clicks present. PULSES: Carotid arteries: Normal pulses bilaterally without bruits. Palmar arteries: Radial pulses 2+ bilaterally Abdominal aorta: Aortic pulses normal without bruits or enlargement. Femoral arteries: 2+ bilaterally. No bruits present. Pedal pulses: 1-2+ bilaterally PERIPHERAL CIRCULATION: No cyanosis, clubbing, edema or varicosities present. GASTROINTESTINAL: Normal bowel sounds. Nontender without rigidity or guarding. No masses present. No hepatomegaly. Liver is nontender to palpation and spleen is nonpalpable. Digital rectal exam-not indicated for cardiovascular exam. MUSCULOSKELETAL: No kyphosis or scoliosis present. The patient is not ambulated. Able to undergo rehabilitation. SKIN: Skin turgor is normal. No rashes. NEUROLOGIC: Grossly oriented to person, place and time. Normal mood and appropriate affect. Laboratory Laboratory Tests Test 02/16/17 07:43 White Blood Count 8.6 Red Blood Count 4.40 Hemoglobin 14.1 Hematocrit 40.7 Mean Corpuscular Volume 92.4 Mean Corpuscular Hemoglobin 32.0 Mean Corpuscular Hemoglobin Concent 34.6 Red Cell Distribution Width 14.2 Platelet Count 135 Mean Platelet Volume 8.6 Neutrophils (%) (Auto) 63.4 Lymphocytes (%) (Auto) 24.5 Monocytes (%) (Auto) 8.3 Eosinophils (%) (Auto) 3.2 Basophils (%) (Auto) 0.6 Neutrophils # (Auto) 5.4 Lymphocytes # (Auto) 2.1 Monocytes # (Auto) 0.7 Eosinophils # (Auto) 0.3 Basophils # (Auto) 0.0 CBC Comment DIFF FINAL Differential Comment Blood Urea Nitrogen 25 Creatinine 0.88 Random Glucose 111 Total Protein 6.4 Albumin 3.0 Calcium Level 9.2 Alkaline Phosphatase 96 Aspartate Amino Transf (AST/SGOT) 15 Alanine Aminotransferase (ALT/SGPT) 21 Total Bilirubin 0.2 Sodium Level 131 Potassium Level 3.5 Chloride Level 96 Carbon Dioxide Level 26.9 Anion Gap 8 Estimat Glomerular Filtration Rate 63 Troponin I LESS THAN 0.02 Result Diagram: 02/16/17 0743 02/16/17 0743 Imaging Last [address] 02/15/17 0922 Signed Impressions: Service Date/Time: Wednesday, February 15, 2017 09:39 - CONCLUSION: 1. No acute intracranial hemorrhage. 2. Stable bilateral cortical atrophy. 3. Soft tissue swelling over the left orbit. José Luis Bradley MD Ribs X-Ray 02/15/17 0000 Signed Impressions: Service Date/Time: Wednesday, February 15, 2017 16:29 - CONCLUSION: 1. There is no evidence of acute fracture. John Jim MD Maxillofacial CT 02/15/17 0000 Signed Impressions: Service Date/Time: Wednesday, February 15, 2017 09:39 - CONCLUSION: 1. Focal soft tissue swelling over the left orbit. 2. No acute bony fractures. José Luis Bradley MD Hand X-Ray 02/15/17 0000 Signed Impressions: Service Date/Time: Wednesday, February 15, 2017 11:46 - CONCLUSION: Mild primary degenerative changes of the hand and wrist. No acute fracture or joint dislocation. José Luis Bradley MD Chest X-Ray 02/15/17 0000 Signed Impressions: Service Date/Time: Wednesday, February 15, 2017 14:52 - CONCLUSION: 1. Cardiomegaly. No acute pulmonary disease. John Jim MD Carotid Artery Ultrasound 02/15/17 0000 Signed Impressions: Service Date/Time: Wednesday, February 15, 2017 15:19 - CONCLUSION: No evidence of hemodynamically significant lesion. John Jim MD Assessment and Plan Assessment and Plan Problems: Syncope Hypertension Tobacco abuse Recommendations: No driving or heavy machinery Continue present medical regimen Tobacco abstinence I will consult Dr. Guerra from electrophysiology. The patient wants to go home but I have cautioned her against that. All questions were answered. Mohsen Reddy MD Feb 16, 2017 12:53
[2017-02-16] MEDS: TIMOLOL MALEATE 0.25% OPHT SOLN 5 ML BTL EACH EYE SCH (22:16)
[2017-02-17] VITALS (8 sets, daily range): BP systolic 133–188; BP diastolic 84–93; PULSE 68–97; RESP 16–18; TEMP 97.8–98.2; O2SAT 92–98
[2017-02-17] MEDS: ACETAMINOPHEN/CODEINE 300 MG/30 MG TAB PO PRN ×3 (01:16→21:45)
--- NOTE | 2017-02-17 07:24 | PD.CARD.PN ---
Subjective Subjective Remarks The patient denies chest pain, shortness of breath, lightheadedness, GI symptoms or bleeding. Telemetry reveals sinus rhythm/sinus bradycardia. Objective Medications Current Medications Medications (Trade) Dose Ordered Sig/Sandhya Route Start Time Stop Time Status Last Admin (NS Flush) 2 ml UNSCH PRN IV FLUSH 02/15/17 11:30 (NS Flush) 2 ml BID IV FLUSH 02/15/17 21:00 02/16/17 08:17 (Zofran Inj) 4 mg Q6H PRN IVP 02/15/17 11:30 (Narcan Inj) 0.4 mg UNSCH PRN IV PUSH 02/15/17 11:30 (Milk Of Magnesia Liq) 30 ml Q12H PRN PO 02/15/17 11:30 (Senokot) 17.2 mg Q12H PRN PO 02/15/17 11:30 (Dulcolax Supp) 10 mg DAILY PRN RECTAL 02/15/17 11:30 (Lactulose Liq) 30 ml DAILY PRN PO 02/15/17 11:30 (Tylenol) 650 mg Q4H PRN PO 02/15/17 12:45 02/16/17 08:18 (Questran 4 Gm Pkt) 4 gm DAILY PO 02/16/17 09:00 02/16/17 08:17 (Bentyl) 20 mg TID PO 02/15/17 18:00 02/16/17 17:57 (Timoptic 0.25% Opth Soln) 1 drop HS EACH EYE 02/15/17 21:00 02/16/17 22:16 (Vasotec Inj) 1.25 mg Q6H PRN IV PUSH 02/15/17 14:45 02/15/17 17:13 (Procardia Xl) 30 mg DAILY PO 02/16/17 09:00 02/16/17 08:17 (Tylenol-Codeine #3) 1 tab Q6H PRN PO 02/15/17 16:15 02/17/17 01:16 Vital Signs / I&O Vital Signs Date Time Temp Pulse Resp B/P (MAP) Pulse Ox O2 Delivery O2 Flow Rate FiO2 02/17/17 03:47 98.2 77 18 169/93 (118) 96 02/17/17 02:52 18 02/16/17 23:36 98.4 84 16 132/70 (90) 96 02/16/17 20:31 98.7 72 17 151/88 (109) 95 02/16/17 16:43 97.7 72 16 143/79 (100) 96 02/16/17 15:11 73 02/16/17 11:20 97.6 78 16 142/70 (94) 95 02/16/17 08:00 63 02/16/17 07:25 98.4 70 16 123/69 (87) 97 I/O 02/16/17 02/16/17 02/16/17 02/17/17 02/17/17 02/17/17 07:00 15:00 23:00 07:00 15:00 23:00 Intake Total 1440 ml 200 ml Balance 1440 ml 200 ml Intake Oral 1440 ml 200 ml # Voids 3 1 1 Physical Exam GENERAL: Well-nourished, well-developed patient in no apparent distress. Bruised with black eye. SKIN: Warm and dry. NECK: JVD normal - less than or equal to 5 cm H20. CARDIOVASCULAR: Regular rate and rhythm without murmurs, gallops, or rubs. RESPIRATORY: Normal breath sounds - equal bilaterally. No accessory muscle use. No wheezes, rales or rubs. PERIPHERY: No cyanosis, or edema. Laboratory Laboratory Tests Test 02/16/17 07:43 02/16/17 14:10 White Blood Count 8.6 TH/MM3 Red Blood Count 4.40 MIL/MM3 Hemoglobin 14.1 GM/DL Hematocrit 40.7 % Mean Corpuscular Volume 92.4 FL Mean Corpuscular Hemoglobin 32.0 PG Mean Corpuscular Hemoglobin Concent 34.6 % Red Cell Distribution Width 14.2 % Platelet Count 135 TH/MM3 Mean Platelet Volume 8.6 FL Neutrophils (%) (Auto) 63.4 % Lymphocytes (%) (Auto) 24.5 % Monocytes (%) (Auto) 8.3 % Eosinophils (%) (Auto) 3.2 % Basophils (%) (Auto) 0.6 % Neutrophils # (Auto) 5.4 TH/MM3 Lymphocytes # (Auto) 2.1 TH/MM3 Monocytes # (Auto) 0.7 TH/MM3 Eosinophils # (Auto) 0.3 TH/MM3 Basophils # (Auto) 0.0 TH/MM3 CBC Comment DIFF FINAL Differential Comment Blood Urea Nitrogen 25 MG/DL Creatinine 0.88 MG/DL Random Glucose 111 MG/DL Total Protein 6.4 GM/DL Albumin 3.0 GM/DL Calcium Level 9.2 MG/DL Alkaline Phosphatase 96 U/L Aspartate Amino Transf (AST/SGOT) 15 U/L Alanine Aminotransferase (ALT/SGPT) 21 U/L Total Bilirubin 0.2 MG/DL Sodium Level 131 MEQ/L Potassium Level 3.5 MEQ/L Chloride Level 96 MEQ/L Carbon Dioxide Level 26.9 MEQ/L Anion Gap 8 MEQ/L Estimat Glomerular Filtration Rate 63 ML/MIN Troponin I LESS THAN 0.02 NG/ML LESS THAN 0.02 NG/ML Imaging Last [address] 02/15/17 09 Signed Impressions: Service Date/Time: Friday, February 15, 2017 09:39 - CONCLUSION: 1. No acute intracranial hemorrhage. 2. Stable bilateral cortical atrophy. 3. Soft tissue swelling over the left orbit. José Luis Bradley MD Assessment and Plan Assessment and Plan Problems: Syncope Hypertension Tobacco abuse Recommendations: No driving or heavy machinery Continue present medical regimen Tobacco abstinence Consult Dr. Guerra from electrophysiology. I will leave further management to him and sign off. Mohsen Reddy MD Feb 17, 2017 07:23
[2017-02-17] MEDS: NIFEdipine 30 MG SUSTAINED RELEASE TAB PO SCH (08:48)
[2017-02-17] MEDS: DICYCLOMINE HCL 20 MG TAB PO SCH ×3 (08:48→18:46)
[2017-02-17] MEDS: SODIUM CHLORIDE 0.9% FLUSH 10 ML FLUSH IV FLUSH SCH ×2 (08:49→20:38)
[2017-02-17] MEDS: CHOLESTYRAMINE 4 GM PACKET PO SCH (09:00)
--- NOTE | 2017-02-17 09:37 | HHI.PR ---
Subjective Remarks Follow-up for syncope. Patient denies any acute overnight events. She had a migraine yesterday that resolved. Has been ambulatory. She denies any lightheadedness or dizziness. No chest pain, shortness breath, palpitations. Awaiting electrophysiology evaluation, discussed with RN Objective Vitals Vital Signs Date Time Temp Pulse Resp B/P (MAP) Pulse Ox O2 Delivery O2 Flow Rate FiO2 02/17/17 07:26 97.8 68 16 163/90 (114) 92 02/17/17 03:47 98.2 77 18 169/93 (118) 96 02/17/17 02:52 18 02/16/17 23:36 98.4 84 16 132/70 (90) 96 02/16/17 20:31 98.7 72 17 151/88 (109) 95 02/16/17 16:43 97.7 72 16 143/79 (100) 96 02/16/17 15:11 73 02/16/17 11:20 97.6 78 16 142/70 (94) 95 I/O 02/16/17 02/16/17 02/16/17 02/17/17 02/17/17 02/17/17 06:59 14:59 22:59 06:59 14:59 22:59 Intake Total 1440 ml 200 ml Balance 1440 ml 200 ml Intake Oral 1440 ml 200 ml # Voids 3 1 1 Result Diagram: 02/16/17 0743 02/16/17 0743 Imaging Last Impressions Head CT 02/15/17 0922 Signed Impressions: Service Date/Time: Wednesday, February 15, 2017 09:39 - CONCLUSION: 1. No acute intracranial hemorrhage. 2. Stable bilateral cortical atrophy. 3. Soft tissue swelling over the left orbit. José Luis Bradley MD Ribs X-Ray 02/15/17 0000 Signed Impressions: Service Date/Time: Wednesday, February 15, 2017 16:29 - CONCLUSION: 1. There is no evidence of acute fracture. John Jim MD Maxillofacial CT 02/15/17 0000 Signed Impressions: Service Date/Time: Wednesday, February 15, 2017 09:39 - CONCLUSION: 1. Focal soft tissue swelling over the left orbit. 2. No acute bony fractures. José Luis Bradley MD Hand X-Ray 02/15/17 0000 Signed Impressions: Service Date/Time: Wednesday, February 15, 2017 11:46 - CONCLUSION: Mild primary degenerative changes of the hand and wrist. No acute fracture or joint dislocation. José Luis Bradley MD Chest X-Ray 02/15/17 0000 Signed Impressions: Service Date/Time: Wednesday, February 15, 2017 14:52 - CONCLUSION: 1. Cardiomegaly. No acute pulmonary disease. John Jim MD Carotid Artery Ultrasound 02/15/17 0000 Signed Impressions: Service Date/Time: Wednesday, February 15, 2017 15:19 - CONCLUSION: No evidence of hemodynamically significant lesion. John Jim MD Objective Remarks GENERAL: Well-developed well-nourished. In no acute distress. SKIN: Warm and dry. Skin tear right elbow. Superficial laceration with some swelling of the left eyebrow. Superficial abrasion on the chin. HEENT: Normocephalic. Pupils equal and round. Mucous membranes pink and moist. CARDIOVASCULAR: Regular rate and rhythm. No murmur appreciated. RESPIRATORY: No accessory muscle use. Clear to auscultation. Breath sounds equal bilaterally. GASTROINTESTINAL: Abdomen soft, non-tender, nondistended. Bowel sounds x4. MUSCULOSKELETAL: No obvious deformities. No clubbing or cyanosis. No edema. Left lower anterior rib tender to palpation. NEUROLOGICAL: Awake and alert. No focal neurological deficits. Moves upper and lower extremities spontaneously. Normal speech. PSYCHIATRIC: Appropriate mood and affect; insight and judgment normal. A/P Assessment and Plan 71-year-old female with past medical history of chronic headaches, IBS, HTN, anxiety/depression, sciatica, glaucoma who presented after syncopal episode Syncope: Unclear etiology; differential includes dehydration, medication effect , possible primary neurocardiogenic event. Reviewed: Head CT with no acute process. Labs show signs of dehydration. UDS positive for benzodiazepines and opiates. EKG with nonspecific ST changes. Troponin negative 3. Carotid ultrasound with no significant stenosis. EEG minimally abnormal and probably benign. -Follow orthostatics, improved -IVF -Avoid sedating medications as able -Consulted cardiology, D/W Dr. Reddy, recommended EP evaluation -Q's in neurology consulted, appreciate input Fall: Head and maxillofacial CT showed soft tissue swelling over the left orbit with no fracture. Chest and rib x-rays with no fractures. -Continue local wound care for abrasions -Continue home Tylenol No. 3 for pain Dehydration: Sodium persistently 131, seems somewhat chronic. Creatinine 1.02, improved to 0.88 with IVF. No significant electrolyte abnormalities. -Hold home diuretic Hypertension: Labile blood pressure is better controlled today. -Hold home diuretic -started nifedipine with good effect -Vasotec as needed IBS: Chronic, stable per patient. -Continue home dicyclomine and cholestyramine -Hold home Librax with possible benzo reaction DVT prophylaxis: SCDs Discharge Planning Follow-up electrophysiology recommendations. Patient went for EP study, follow-up recommendations. Reji Rendon Feb 17, 2017 09:37
[2017-02-17] MEDS: TIMOLOL MALEATE 0.25% OPHT SOLN 5 ML BTL EACH EYE SCH (20:38)
--- NOTE | 2017-02-17 23:12 | HM ---
Date Performed: 02/15/2017 Time Performed: 15:37:00 HOOKUP DATE: 02/15/17 03:37:00 PM Sat ANALYSIS START TIME: 02/15/2017 3:42:00 PM ANALYSIS END TIME: 02/16/2017 2:29:13 PM PATIENT AGE: 71 PATIENT HEIGHT PATIENT WEIGHT DRUG LIST: ROOM F-68 PATIENT DIAGNOSIS: EVAC / FALL TEST NARRATIVE: The patient's average heart rate was 65 BPM. No episodes of tachycardia wer e noted. Heart rates less than 50 BPM were noted < 1% of the time. No pauses exceeding 2.0 secon ds were noted. 12 ventricular ectopics, which represented < 1% of the total beat count, were note d. The highest ventricular ectopic frequency occurred from 09:00 PM to 10:00 PM Sat. During this ti me 2 VE(s) occurred. Ventricular ectopics were observed as 10 isolated beat(s) and as 1 couplet(s). No runs were noted. 49 supraventricular ectopics, which represented < 1% of the total beat count , were noted. The highest supraventricular ectopic frequency occurred from 04:00 PM to 05:00 PM Sat. During this time 5 SVE(s) occurred. Multiple episodes of ST depression (defined as -1.0 mm or m ore) were noted in channel 1. The maximum depression of -2.0 mm occurred at 07:15:50 AM Sun. Multi ple episodes of ST depression (defined as -1.0 mm or more) were noted in channel 2. The maximum dep ression of -1.7 mm occurred at 07:15:50 AM Sun. No episodes of ST depression (defined as -1.0 mm or more) were noted in channel 3. NO DIARY RETURNED TEST INTERPRETATION: Sinus rhythm Frequent PACs Occasionsal PVCs Si gned by : Ralph Dsouza
[2017-02-17] MEDS ORDERED: ACETAMIN 325 MG/BUTALBITAL 50 MG/CAFFEINE 40 MG TAB PO ONE (23:45)
[2017-02-18 00:04] VITALS: PULSE 84
[2017-02-18 00:13] VITALS: BP 147/82; PULSE 81; RESP 18; TEMP 97.9; O2SAT 97
[2017-02-18 03:58] VITALS: BP 140/70; PULSE 68; PULSE 84; RESP 18; TEMP 98; O2SAT 97
[2017-02-18 07:45] VITALS: BP_SYST 140; BP_SYST 145; BP_SYST 146; BP_DIAS 104; BP_DIAS 87; BP_DIAS 94; PULSE 82; RESP 18; O2SAT 98
[2017-02-18 08:01] VITALS: PULSE 74
[2017-02-18] MEDS: SODIUM CHLORIDE 0.9% FLUSH 10 ML FLUSH IV FLUSH SCH (08:08)
[2017-02-18] MEDS: NIFEdipine 30 MG SUSTAINED RELEASE TAB PO SCH (08:08)
[2017-02-18] MEDS: ACETAMINOPHEN/CODEINE 300 MG/30 MG TAB PO PRN (08:09)
[2017-02-18] MEDS: DICYCLOMINE HCL 20 MG TAB PO SCH (08:10)
[2017-02-18] MEDS: CHOLESTYRAMINE 4 GM PACKET PO SCH (08:13)
--- NOTE | 2017-02-18 08:26 | HHI.PR ---
Subjective Remarks Follow up for syncope. The patient reports just feeling sore all over, worse at the ribs, and with a mild headache, worse at the left frontal region at site of injury. Denies any lightheadedness, dizziness, chest pain, palpitations, shortness of breath, or abdominal complaints. She would like to go home later today if possible. She states she already has [facility] nurses at home. Objective Vitals Vital Signs Date Time Temp Pulse Resp B/P (MAP) Pulse Ox O2 Delivery O2 Flow Rate FiO2 02/18/17 08:01 74 02/18/17 07:45 82 18 140/87 (104) 98 145/94 (111) 146/104 (118) 02/18/17 03:58 98.0 68 18 140/70 (93) 97 02/18/17 03:58 84 02/18/17 01:30 18 02/18/17 00:13 97.9 81 18 147/82 (103) 97 02/18/17 00:04 84 02/18/17 00:01 18 02/17/17 20:34 147/92 (110) 02/17/17 20:10 97 02/17/17 19:17 97.9 79 18 188/84 (118) 98 182/85 (117) 160/86 (110) 02/17/17 18:42 98.0 79 16 169/93 (118) 98 02/17/17 12:30 98.0 76 16 171/88 (115) 97 149/90 (109) 133/90 (104) I/O 02/17/17 02/17/17 02/17/17 02/18/17 02/18/17 02/18/17 07:00 15:00 23:00 07:00 15:00 23:00 Intake Total 480 ml Output Total 450 ml Balance -450 ml 480 ml Intake Oral 480 ml Output Urine Total 450 ml # Voids 2 # Bowel Movements 1 Result Diagram: 02/16/17 0743 02/16/1743 Imaging Last Impressions Head CT 02/15/17921 Signed Impressions: Service Date/Time: Wednesday, February 15, 2017 09:39 - CONCLUSION: 1. No acute intracranial hemorrhage. 2. Stable bilateral cortical atrophy. 3. Soft tissue swelling over the left orbit. José Luis Bradley MD Ribs X-Ray 02/15/17 0000 Signed Impressions: Service Date/Time: Wednesday, February 15, 2017 16:29 - CONCLUSION: 1. There is no evidence of acute fracture. John Jim MD Maxillofacial CT 02/15/17 Signed Impressions: Service Date/Time: Wednesday, February 15, 2017 09:39 - CONCLUSION: 1. Focal soft tissue swelling over the left orbit. 2. No acute bony fractures. José Luis Bradley MD Hand X-Ray 02/15/17 Signed Impressions: Service Date/Time: Wednesday, February 15, 2017 11:46 - CONCLUSION: Mild primary degenerative changes of the hand and wrist. No acute fracture or joint dislocation. José Luis Bradley MD Chest X-Ray 02/15/17 Signed Impressions: Service Date/Time: Wednesday, February 15, 2017 14:52 - CONCLUSION: 1. Cardiomegaly. No acute pulmonary disease. John Jim MD Carotid Artery Ultrasound 02/15/17 Signed Impressions: Service Date/Time: Wednesday, February 15, 2017 15:19 - CONCLUSION: No evidence of hemodynamically significant lesion. John Jim MD Objective Remarks GENERAL: Well-nourished, well-developed pleasant elderly female patient in [facility]. SKIN: Warm and dry. Diffuse ecchymosis throughout face and extremities. Superficial laceration left eyebrow. Superficial abrasion of chin. HEENT: Normocephalic. Left periorbital ecchymosis. Pupils equal and round. Mucous membranes pink and moist. CARDIOVASCULAR: Regular rate and rhythm. S1, S2 noted. No murmur appreciated. RESPIRATORY: No accessory muscle use. Clear to auscultation. Breath sounds equal bilaterally. GASTROINTESTINAL: Abdomen soft, non-tender, nondistended. Normoactive bowel sounds x4. MUSCULOSKELETAL: No obvious deformities. Extremities without clubbing, cyanosis , or edema. NEUROLOGICAL: Awake and alert. No obvious cranial nerve deficits. Motor grossly within normal limits. Normal speech. PSYCHIATRIC: Appropriate mood and affect; insight and judgment normal. Medications and IVs Current Medications Medications (Trade) Dose Ordered Sig/Sandhya Route Start Time Stop Time Status Last Admin (NS Flush) 2 ml UNSCH PRN IV FLUSH 02/15/17 11:30 (NS Flush) 2 ml BID IV FLUSH 02/15/17 21:00 02/18/17 08:08 (Zofran Inj) 4 mg Q6H PRN IVP 02/15/17 11:30 (Narcan Inj) 0.4 mg UNSCH PRN IV PUSH 02/15/17 11:30 (Milk Of Magnesia Liq) 30 ml Q12H PRN PO 02/15/17 11:30 (Senokot) 17.2 mg Q12H PRN PO 02/15/17 11:30 (Dulcolax Supp) 10 mg DAILY PRN RECTAL 02/15/17 11:30 (Lactulose Liq) 30 ml DAILY PRN PO 02/15/17 11:30 (Tylenol) 650 mg Q4H PRN PO 02/15/17 12:45 02/16/17 08:18 (Questran 4 Gm Pkt) 4 gm DAILY PO 02/16/17 09:00 02/16/17 08:17 (Bentyl) 20 mg TID PO 02/15/17 18:00 02/18/17 08:10 (Timoptic 0.25% Opth Soln) 1 drop HS EACH EYE 02/15/17 21:00 02/17/17 20:38 (Vasotec Inj) 1.25 mg Q6H PRN IV PUSH 02/15/17 14:45 02/15/17 17:13 (Procardia Xl) 30 mg DAILY PO 02/16/17 09:00 02/18/17 08:08 (Tylenol-Codeine #3) 1 tab Q6H PRN PO 02/15/17 16:15 02/18/17 08:09 A/P Assessment and Plan 71-year-old female with history of chronic headaches, IBS, HTN, anxiety/ depression, sciatica, glaucoma who presented after syncopal episode Syncope: Unclear etiology; differential includes dehydration, medication effect , possible primary neurocardiogenic event. Reviewed: Head CT with no acute process. Labs show signs of dehydration. UDS positive for benzodiazepines and opiates. EKG with nonspecific ST changes. Troponin negative 3. Carotid ultrasound with no significant stenosis. EEG minimally abnormal and probably benign. -Follow orthostatics, given IVF, much improved -Avoid sedating medications as able -Consulted cardiology, seen by Dr. Houston, recommended EP evaluation -Dr. Guerra consulted, plan for EP study today Fall: Head and maxillofacial CT showed soft tissue swelling over the left orbit with no fracture. Chest and rib x-rays with no fractures. -Continue local wound care for abrasions -Continue home Tylenol No. 3 for pain Dehydration: Sodium persistently 131, seems somewhat chronic. Creatinine 1.02, improved to 0.88 with IVF. No significant electrolyte abnormalities. -Held home diuretic Hypertension: Labile blood pressure is better controlled today. -Held home diuretic -started nifedipine with good effect -Vasotec as needed IBS: Chronic, stable per patient. -Continue home dicyclomine and cholestyramine -Hold home Librax with possible benzo reaction DVT prophylaxis: SCDs Discharge Planning Possible discharge later today after EP study. Rola Dillon PA-C Feb 18, 2017 8:26 am
[2017-02-18] MEDS ORDERED: MIDAZOLAM HCL 2 MG/2 ML VIAL IV ONE (12:00)
[2017-02-18] MEDS ORDERED: PROPOFOL 200 MG/20 ML AMP IV ONE (12:00)
[2017-02-18] MEDS ORDERED: HEPARIN-NS/PF INJ 1,000 ML ONE (12:01)
[2017-02-18] MEDS ORDERED: ISOPROTERENOL HCL 1 MG/5 ML AMP ONE (12:11)
--- NOTE | 2017-02-18 12:46 | CATHPROC ---
[employer] HIS Report Study Information Study Number Scheduled Start Study Start [id number] 02/18/2017 Feb 18 2017 11:17AM Referring Institution Admit Source Facility Department 1 Other [facility] - Environmental Services Associate Physician and Clinical Staff Initial Alena Owens News Copy Editor Saeid Segundo,RT(R) News Copy Editor Shelly Schmitt RCIS TECH2 Other Anesthesia, FISH HATCHERY SUPERVISOR Recorder Cleo Guillermo,RN Scrub Saeid Segundo,RT(R) Equipment Time Bus T[employer]ley And [employer]i Instructor Description Size Mfg Part Number Used/Scraped [id number] 11:48 MEDLINE INDUSTRIES PACK, CCL CUSTOM * Used *[id number] 11:48 MEDLINE PACER DENISE, LIMB * 2530 *[id number] Used [id number] 11:48 [place] [employer] BLANKET,WARM AIR CCL * Used *[id number] 12:18 [employer] MEDICAL CATHETER, JSN, QUAD FR 5 Used *[id number] 12:18 [employer] MEDICAL CATHETER, JSN, QUAD FR 5 Used *[id number] 12:18 [employer] MEDICAL CATHETER, JSN, QUAD FR 5 Used *[id number] 12:18 [employer] MEDICAL CATHETER, JSN, QUAD FR 5 Used *[id number] 12:17 ST. DIANE MEDICAL SHEATH, EPS, FR5 FAST CATH FR 5 Used *[id number] 12:17 [employer] MEDICAL SHEATH, EPS, FR5 FAST CATH FR 5 Used *[id number] 12:17 [employer] MEDICAL SHEATH, EPS, FR5 FAST CATH FR 5 Used *[id number] 12:17 [employer]ANE MEDICAL SHEATH, EPS, FR6 FAST CATH FR 6 Used *[id number] History: Allergies Allergy Reaction No Known Allergies Labs Hgb (g/dl) Hct (%) RBC (MIL/MM3) WBC (l/cumm) Platelets (thousands) 11.60-17.00 35.00-51.00 4.00-5.90 4.00-11.00 150.00-450.00 14.0 40 4.4 8.6 135 Glucose (mg/dl) BUN (mg/dl) Creatinine (mg/dl) BUN:Creatinine (1:x) 74.00-106.00 7.00-18.00 0.50-1.30 10.00-20.00 111 25 0.8 31.3 Na (meq/l) K (meq/l) 136.00-145.00 3.50-5.10 131 3.5 INR (PTT:PT) 0.90-1.10 0.9 Medication Medication Total Dose (Bolus/Oral) Medication Total Dosage/Unit 1% XYLOCAINE 20 mL Medications (Bolus/Oral) Medication Time Given Dosage/Unit Administered By Reason 02/18/2017 12:13:56 1% XYLOCAINE 20 mL Alena Guerra PM 20 mL 1% XYLOCAINE given in lab by Alena Guerra in Right Groin via Subcutaneous. Medication (Drip) Medication Time Given Dosage/Unit Concentration/Unit Diluent (ml) Solution 02/18/2017 12:29:11 ISUPREL 4 mcg/min 1 mg 250 NaCl .9 PM 4 mcg/min ISUPREL given in lab by Anesthesia, FISH HATCHERY SUPERVISOR via Peripheral IV. Pump/Drip Flow = 60 ml/hr using NaCl .9 with a concentration of 1 mg in 250 ml. 02/18/2017 12:33:58 ISUPREL 4 mcg/min 1 mg 250 NaCl .9 PM 4 mcg/min ISUPREL given in lab by Anesthesia, FISH HATCHERY SUPERVISOR via Peripheral IV. Pump/Drip Flow = 60 ml/hr using NaCl .9 with a concentration of 1 mg in 250 ml. Discontinued at 02/18/2017 12:37. Initial Case Assessment Cardiovascular HR NIBP Chest Pain 71 173/83 0 Edema Present Skin color Skin Mild Normal Warm Dry Circulatory - Lower Extremities Color Lower Right Color Lower Left Normal Normal Neurological State Oriented to time-place- Alert Moves all extremities person Respiration - General Respiration Rate SpO2 (%) (B/min) 20 96 Chronological Log Time Study Chronological Log 11:46:26 Patient arrived via Bed. 11:46:27 Patient Name, D.O.B, / Armband Verified By R.N. 11:46:27 Consent signed by the physician and the patient and verified by the Environmental Services Associate staff. 11:46:28 Pre-op and post- op instructions given; patient acknowledges understanding of instructions. 11:48:44 Verbal Stimulation=2 Physical Stimulation=2 Airway=2 Respiration=2 TOTAL=8. (0=absent, 1=li mited, 2=present) 11:48:53 Anesthesia at bedside. Assumes care of patient. Christiano 11:49:09 Patient has been NPO for More than 6Hrs. 11:49:10 Skin Breakdown- face and body with generalized ecchymosis. Chin noted w steri strip. 11:49:11 Patient Warmer Placed on the Table. 11:49:11 Disposable Defibrillator Pads Placed On Patient. 11:49:12 Ji Prominences Protected 11:49:14 A # 20 IV was noted in the Forearm (left). Grade = 0 0.9ns kvo 11:49:15 A # 20 IV was noted in the Forearm (right). Grade = 0 0.9ns kvo 11:49:16 History and physical on the chart or being dictated. Assessment: Initial Case, HR=71 BPM, LJJP=208/83 mmhg, Chest Pain=0, Edema=Mild, Color=Normal, Skin = Warm, Dry Lower Right Extremities: Color=Normal 12:05:58 Lower Left Extremities: Color=Normal Neurological: State=Alert, Ox3, SAM Respiration: Resp=20 B/min, SpO2=96 % 12:06:29 Table restraints applied according to hospital policy 12:06:33 2% CHLORHEXIDINE GLUCONATE WASH AND NASAL SWIPE DONE PRIOR TO PROCEDURE. 12:06:42 Bilateral groins prepped with 2% chlorhexidine, and draped after a 3 minute waiting time. 12:07:53 MD arrived. Time Out. Correct patient, procedure, procedure equipment, site and side verified with physici an present. Time 12:13:02 concurred by MD, individual staff and FISH HATCHERY SUPERVISOR. Time Out #2 - Consents verified, patient in correct position, all results are labled and displ ayed, safety precautions 12:13:23 taken, antibiotics administered. Time out concurred by MD, individual staff and FISH HATCHERY SUPERVISOR in proced ure 12:13:45 Case Start 12:13:56 20 mL 1% XYLOCAINE given in lab by Alena Guerra in Right Groin via Subcutaneous. 12:14:14 Vascular access was obtained in the Fem Vein (right). 12:14:16 Vascular access was obtained in the Fem Vein (right). 12:14:22 Vascular access was obtained in the Fem Vein (right). 12:14:56 Vascular access was obtained in the Fem Vein (right). 12:16:33 A SHEATH, EPS, FR5 FAST CATH FR 5 was advanced into the Fem Vein (right) using the Modifie d Seldinger technique. 12:17:39 A SHEATH, EPS, FR5 FAST CATH FR 5 was advanced into the Fem Vein (right) using the Modifie d Seldinger technique. 12:17:41 A SHEATH, EPS, FR5 FAST CATH FR 5 was advanced into the Fem Vein (right) using the Modifie d Seldinger technique. 12:17:51 A SHEATH, EPS, FR6 FAST CATH FR 6 was advanced into the Fem Vein (right) using the Modifie d Seldinger technique. A CATHETER, JSN, QUAD FR 5 was advanced vis Fem Vein (right) and placed in the CS. Placement w as visually 12:18:00 confirmed under fluoroscopy. A CATHETER, JSN, QUAD FR 5 was advanced vis Fem Vein (right) and placed in the HIS. Placement was visually 12:18:36 confirmed under fluoroscopy. A CATHETER, JSN, QUAD FR 5 was advanced vis Fem Vein (right) and placed in the HRA. Placement was visually 12:19:18 confirmed under fluoroscopy. A CATHETER, JSN, QUAD FR 5 was advanced vis Fem Vein (right) and placed in the RVA. Placement was visually 12:19:40 confirmed under fluoroscopy. 12:21:01 EPS in progress. 4 mcg/min ISUPREL given in lab by Anesthesia, FISH HATCHERY SUPERVISOR via Peripheral IV. Pump/Drip Flow = 60 ml/h r using NaCl .9 with 12:29:11 a concentration of 1 mg in 250 ml. 4 mcg/min ISUPREL given in lab by Anesthesia, FISH HATCHERY SUPERVISOR via Peripheral IV. Pump/Drip Flow = 60 ml/h r using NaCl .9 with 12:33:58 a concentration of 1 mg in 250 ml. Discontinued at 02/18/2017 12:37. 12:41:00 EPS complete. 12:41:16 Quad catheters removed. 12:41:56 Sheath(s) left in place, secured, 0.9ns kvo connected and will be removed in Holding Area 12:43:39 Case End 12:44:27 No case complications noted. 12:44:28 Cine recording checked. 12:44:46 NOTE: This patient is undergoing an additional procedure while still in the Cardiac Cath L ab. 12:44:53 Initial procedure has been completed. Beginning additional procedure. 12:44:58 EP Procedure was performed. End Study - Contrast Media Used In Study Contrast Total Opened (mL) Total Used (mL) Total Wasted (mL) Unspecified 0 0 0 End Study - Maximum Contrast Load Max Contrast Load (mL) 383.2 End Study - Radiation Exposure Fluoro Time (minutes) 0.8 End Study - Patient Disposition Complications Transferred To Interventional Outcome No Environmental Services Associate Holding successful
[2017-02-18] MEDS ORDERED: ceFAZolin INJ 1,000 MG VIAL ONE (12:50)
--- NOTE | 2017-02-18 13:04 | CATHPROC ---
[employer] HIS Report Study Information Study Number Scheduled Start Study Start [id number] 02/18/2017 Feb 18 2017 12:48PM Referring Institution Admit Source Facility Department 1 Other [facility] Lab Physician and Clinical Staff Initial Alena Owens Corporate Lawyer Saeid Segundo,RT(R) Other Anesthesia, STORAGE MANAGEMENT CONSULTANT Recorder Celo Guillermo,RN Scrub Laura Addison RCIS Equipment Time Lamp Shade Maker Description Size Mfg Part Number Used/Scraped DERMABOND, ADHESIVE SKIN [id number] 12:54 CORDIS/PACER * Used GLUE MINI *[id number] DERMABOND, ADHESIVE SKIN [id number] 12:57 CORDIS/PACER * Used GLUE MINI *[id number] 12:54 MEDLINE INDUSTRIES SUTURE, STRIP PLUS 1/2" * Used *[id number] 12:54 MEDLINE PACER DENISE, LIMB * 2530 *[id number] Used [id number] 12:54 MEDLINE PACER PACK, PACER CUSTOM * Used *[id number] SUTURE, 0 ETHIBOND [CT1] (CX21D), 8pk SUTURE, 2-0 VICRYL [CT1] ([id number]) SUTURE, 2-0 VICRYL [CT1] (NEK242T) [id number] 12:54 [place] [employer] BLANKET,WARM AIR CCL * Used *[id number] [facility] PAD, ELECTROSURGICAL 12:54 * [id number] *[id number] Used SURGICAL GROUNDING ORANGE RECORDER, REVEAL LINQ 9538 LNQSYS 12:59 Nabto Used SYSTEM *[id number] 12:54 [employer] MED[employer] SEAN. / * Used *[id number] Medication Medication Total Dose (Bolus/Oral) Medication Total Dosage/Unit 2% XYLOCAINE 50 mL Medications (Bolus/Oral) Medication Time Given Dosage/Unit Administered By Reason 02/18/2017 12:52:38 2% XYLOCAINE 50 mL Alena Guerra PM 50 mL 2% XYLOCAINE given in lab by Alena Guerra via Subcutaneous. Medication (Drip) Medication Time Given Dosage/Unit Concentration/Unit Diluent (ml) Solution 02/18/2017 12:49:30 ANCEF 2 g PM 2 g ANCEF given by Anesthesia, STORAGE MANAGEMENT CONSULTANT via Peripheral IV. Ordered by Alena Guerra. Reason: As per physi cians verbal order. Final Case Assessment Cardiovascular HR Rhythm NIBP Chest Pain 75 sr 115/66 0 Circulatory - Right Pulses Dorsalis Pedis 1 Scale (0,1,2,3,4,d) Circulatory - Left Pulses Dorsalis Pedis 1 Scale (0,1,2,3,4,d) Circulatory - Lower Extremities Color Lower Right Color Lower Left Normal Normal Neurological State Oriented to time-place- Lethargic Moves all extremities person Respiration - General Respiration Rate SpO2 (%) O2 (lpm) (B/min) 14 100 6 Chronological Log Time Study Chronological Log 12:44:02 Initial procedure has been completed. Beginning additional procedure. 12:44:06 Anesthesia remains at bedside. Assuming care of patient. 12:44:49 NOTE: This patient is undergoing an additional procedure while still in the Cardiac Cath L ab. 12:45:40 Left Upper Chest Prepped Times Two. 2 g ANCEF given by Anesthesia, STORAGE MANAGEMENT CONSULTANT via Peripheral IV. Ordered by Alena Guerra. Reason: As pe r physicians verbal 12:49:30 order. Time Out. Correct patient, procedure, procedure equipment, site and side verified with physici an present. Time 12:52:36 concurred by MD, individual staff and STORAGE MANAGEMENT CONSULTANT. 12:52:37 Case Start 12:52:38 50 mL 2% XYLOCAINE given in lab by Alena Guerra via Subcutaneous. 12:53:24 Surgical Incision Made. 12:59:32 A RECORDER, [employer] LINQ 9538 SYSTEM was placed in the pocket. 13:00:00 Case End 13:00:02 Steri-strips and a sterile dressing applied to site. 13:00:33 DOCU called. Spoke to AMPARO 13:00:41 Bedside Report will be given. 13:00:45 Implant Procedure was performed. 13:00:51 A Loop Recorder Inserted . (Single) 13:01:03 Defibrillator and ground pads removed. Skin intact. Assessment: Final Case, HR=75 BPM, Rhythm=sr, LIMM=252/66 mmhg, Chest Pain=0 Right Pulses: [place] Ped=1 Left Pulses: [place] Ped=1 13:02:47 Lower Right Extremities: Color=Normal Lower Left Extremities: Color=Normal Neurological: State=Lethargic, Ox3, SAM Respiration: Resp=14 B/min, EwA6=320 %, O2=6 lpm 13:07:05 Patient moved to stretcher End Study - Contrast Media Used In Study Contrast Total Opened (mL) Total Used (mL) Total Wasted (mL) Unspecified 0 0 0 End Study - Radiation Exposure Fluoro Time (minutes) 0.0 End Study - Patient Disposition Complications Transferred To Interventional Outcome No Telemetry Bed successful
[2017-02-18] MEDS ORDERED: SODIUM CHLOR 0.9% 250 ML INJ 250 ML IV PRN (13:45)
[2017-02-18] MEDS ORDERED: oxyCODONE/ACETAMINOPHEN 5 MG/325 MG TAB PO PRN ×2 (13:45)
[2017-02-18] MEDS ORDERED: ONDANSETRON HCL 4 MG/2 ML VIAL IV PUSH PRN (13:45)
[2017-02-18] MEDS ORDERED: LIDOCAINE HCL 1% 50 ML VIAL INFIL PRN (13:45)
[2017-02-18] MEDS ORDERED: BACITRACIN OINT 0.9 GM PKT TOP ONE (13:45)
[2017-02-18] MEDS ORDERED: LORazepam 2 MG/ML VIAL IV PUSH PRN (13:45)
[2017-02-18] MEDS ORDERED: ATROPINE SULFATE 1 MG/ML VIAL IV PUSH PRN (13:45)
[2017-02-18] MEDS ORDERED: METOCLOPRAMIDE HCL 10 MG/2 ML VIAL IV PUSH PRN (13:45)
[2017-02-18] MEDS ORDERED: NIFE30TA8 PO (13:48)
--- NOTE | 2017-02-18 13:48 | HHI.DCPOC ---
Discharge Care Plan Diagnosis: (1) Syncope (2) Hypertension Goals to Promote Your Health * To prevent worsening of your condition and complications * To maintain your health at the optimal level Directions to Meet Your Goals Take your medications as prescribed Follow your dietary instruction Follow activity as directed Keep your appointments as scheduled Take your immunizations and boosters as scheduled If your symptoms worsen call your PCP, if no PCP go to Urgent Care Center or Emergency Room Smoking is Dangerous to Your Health. Avoid second hand smoke Call the 24-hour hour crisis hotline for domestic abuse at Rola Dillon PA-C Feb 18, 2017 1:48 pm
[2017-02-18] MEDS: ENALAPRILAT 1.25 MG/ML VIAL IV PUSH PRN (13:53)
--- NOTE | 2017-02-18 14:47 | MA ---
cc: SHARMAINE MEDINA M.D., MARGARET M.D. DUNCAN, JEFFREY D. MD DATE: 02/18/2017 PROCEDURE Electrophysiology study, CS cannulation, repeat electrophysiology study on Isuprel infusion. INDICATION Mrs. Mccabe is a 71-year-old female with previous episode of syncope, facial trauma, was referred for electrophysiology study and possible device insertion. The risks, the nature and the benefit of the procedure were clearly stated to her. The risks include pneumothorax, cardiac perforation, stroke, need for open heart surgery and even . The patient understood and agreed to proceed. DETAILS OF PROCEDURE After written informed consent was obtained, the patient was brought to the EP lab where she was prepped and draped in the usual sterile fashion. Conscious sedation was initiated and maintained throughout the procedure by the anesthesiologist. Once sedation was verified, the right inguinal area was anesthetized with 2% Xylocaine. Using modified Seldinger technique, the right femoral vein was cannulated on four occasions and four guidewires were advanced. Over the wires three 5 and a 6 [place] Hemaquet were advanced. Then under fluoroscopic guidance through the 5 and 6 [place] Hemaquets, four 5 [place] Seun curved quadripolar electrophysiology catheters were advanced and positioned on the His, upper right atrium, coronary sinus and right ventricular apex. Basic intervals were measured. They were within normal limits. Then sinus node recovery time was performed; it was adequate. Then atrial pacing protocol was performed. Atrial pacing protocol consisted of incremental atrial pacing as well as programmed stimulation with 110 cycle length and up to one extrastimuli delivered. No tachyarrhythmia was induced. Then ventricular pacing protocol was performed. There was VA conduction; it was concentric. No tachyarrhythmia was induced. Ventricular pacing protocol consisted of incremental ventricular pacing as well as programmed stimulation with 110 cycle length and up to one extrastimuli delivered. No tachyarrhythmia was induced. Then Isuprel infusion was initiated. Atrial and ventricular pacing protocol was repeated post Isuprel and no tachyarrhythmia was induced. At that point the procedure was complete. All catheters were removed. The patient is going to be kept on the table and a loop recorder will be inserted. No incident report. The patient tolerated the procedure. Blood loss minimal. FINDINGS 1. Electrocardiogram: At baseline the patient was in sinus. Post-procedure electrocardiogram was unchanged. 2. Basic intervals: Basic cycle length was around 940 milliseconds, AH at 110 and HV was around 48 milliseconds. 3. Atrial pacing protocol: Wenckebach of the node was around 450 milliseconds. ERP of the node 600, 320 milliseconds. No tachyarrhythmia was induced. 4. Ventricular pacing protocol: There was VA conduction. No tachyarrhythmia was induced. CONCLUSIONS Negative electrophysiology study for supraventricular tachyarrhythmia. COMMENT/RECOMMENDATION Mrs. Mccabe had a serious episode of syncope. No weakness. She had facial trauma. A loop recorder will be inserted for monitoring. Sharmaine Medina MD HS/BT /1:45 PM /2:29 PM
--- NOTE | 2017-02-18 17:08 | HHI.DS ---
Discharge Summary Admission Date Feb 15, 2017 at 11:33 am Discharge Date: Feb 18, 2017 Admitting Diagnosis syncope recurrent (1) Syncope ICD Code: R55 - Syncope and collapse Diagnosis: Principal Status: Acute (2) Bradycardia ICD Code: R00.1 - Bradycardia, unspecified Diagnosis: Secondary Status: Acute (3) Contusion of face ICD Code: S00.83XA - Contusion of other part of head, initial encounter Diagnosis: Secondary Status: Acute (4) Head injury ICD Code: S09.90XA - Unspecified injury of head, initial encounter Diagnosis: Secondary Status: Acute (5) Hypertension ICD Code: I10 - Essential (primary) hypertension Diagnosis: Secondary Status: Acute Procedures 02/18/[address] Guerra, Loop recorder placement Brief History - From Admission 71-year-old female with past medical history of chronic headaches, IBS, HTN, anxiety/depression, sciatica, glaucoma who presented after syncopal episode. The patient states that she was walking her dog and passed out and fell. She denies any symptoms prior to passing out. She states that she remembers walking along in the next thing she remembers is she was on the ground and bleeding. She is not sure how long she passed out for. She states that she is always lightheaded and occasionally has dizzy episodes and falling but has never lost consciousness before. She states she has been feeling in her normal state of health lately. She denies any chest pain, shortness breath, palpitations, fever, chills, nausea, vomiting, dysuria. She has had occasional night sweats in the past month. She has IBS and has been having no intermittent diarrhea and abdominal cramping, although denies any acute worsening. She has daily headaches when she wakes up which she takes medications for, denies any acute changes. She denies any new medications or change in medications recently. She did finish an antibiotic for a tooth infection a few days ago, no tooth pain now. Currently she does complain of some left-sided discomfort from where she fell. Denies any history of heart disease. Patient was recently started last month on Tylenol No. 3 for sciatic pain by her PCP. CBC/BMP: 02/16/17 0743 02/16/17 0743 Significant Findings Laboratory Tests Test 02/16/17 07:43 02/16/17 14:10 Platelet Count 135 TH/MM3 (150-450) Monocytes (%) (Auto) 8.3 % (0.0-8.0) Blood Urea Nitrogen 25 MG/DL (7-18) Random Glucose 111 MG/DL (74-106) Albumin 3.0 GM/DL (3.4-5.0) Sodium Level 131 MEQ/L (136-145) Chloride Level 96 MEQ/L (98-107) Estimat Glomerular Filtration Rate 63 ML/MIN (>89) Troponin I LESS THAN 0.02 NG/ML LESS THAN 0.02 NG/ML Imaging Last Impressions Head CT 02/15/1722 Signed Impressions: Service Date/Time: Wednesday, February 15, 2017 09:39 - CONCLUSION: 1. No acute intracranial hemorrhage. 2. Stable bilateral cortical atrophy. 3. Soft tissue swelling over the left orbit. José Luis Bradley MD Ribs X-Ray 02/15/17 0000 Signed Impressions: Service Date/Time: Wednesday, February 15, 2017 16:29 - CONCLUSION: 1. There is no evidence of acute fracture. John Jim MD Maxillofacial CT 02/15/17 0000 Signed Impressions: Service Date/Time: Wednesday, February 15, 2017 09:39 - CONCLUSION: 1. Focal soft tissue swelling over the left orbit. 2. No acute bony fractures. José Luis Bradley MD Hand X-Ray 02/15/17 0000 Signed Impressions: Service Date/Time: Wednesday, February 15, 2017 11:46 - CONCLUSION: Mild primary degenerative changes of the hand and wrist. No acute fracture or joint dislocation. José Luis Bradley MD Chest X-Ray 02/15/17 0000 Signed Impressions: Service Date/Time: Wednesday, February 15, 2017 14:52 - CONCLUSION: 1. Cardiomegaly. No acute pulmonary disease. John Jim MD Carotid Artery Ultrasound 02/15/17 0000 Signed Impressions: Service Date/Time: Wednesday, February 15, 2017 15:19 - CONCLUSION: No evidence of hemodynamically significant lesion. John Jim MD PE at Discharge GENERAL: Well-nourished, well-developed pleasant elderly female patient in NAD. SKIN: Warm and dry. Diffuse ecchymosis throughout face and extremities. Superficial laceration left eyebrow. Superficial abrasion of chin. HEENT: Normocephalic. Left periorbital ecchymosis. Pupils equal and round. Mucous membranes pink and moist. CARDIOVASCULAR: Regular rate and rhythm. S1, S2 noted. No murmur appreciated. RESPIRATORY: No accessory muscle use. Clear to auscultation. Breath sounds equal bilaterally. GASTROINTESTINAL: Abdomen soft, non-tender, nondistended. Normoactive bowel sounds x4. MUSCULOSKELETAL: No obvious deformities. Extremities without clubbing, cyanosis , or edema. NEUROLOGICAL: Awake and alert. No obvious cranial nerve deficits. Motor grossly within normal limits. Normal speech. PSYCHIATRIC: Appropriate mood and affect; insight and judgment normal. Hospital Course 71-year-old female with history of chronic headaches, IBS, HTN, anxiety/ depression, sciatica, glaucoma who presented after syncopal episode Syncope: Unclear etiology after extensive work up, suspect multifactorial secondary to dehydration, medication effect, possible primary neurocardiogenic event. Head CT with no acute process. Labs show signs of dehydration. UDS positive for benzodiazepines and opiates. EKG with nonspecific ST changes. Troponin negative 3. Carotid ultrasound with no significant stenosis. EEG minimally abnormal and probably benign. Follow orthostatics, given IVF, much improved. Avoid sedating medications as able. Consulted cardiology, seen by Dr. Reddy, recommended EP evaluation. Seen by Dr. Guerra, patient underwent EP study and Loop recorder placement. Cleared for discharge by cardiology. Patient wants to go home. No further syncopal events throughout admission. Stable for discharge. Fall: Head and maxillofacial CT showed soft tissue swelling over the left orbit with no fracture. Chest and rib x-rays with no fractures. Continue local wound care for abrasions. Continue home Tylenol No. 3 for pain. Dehydration: Sodium persistently 131, seems somewhat chronic. Creatinine 1.02, improved to 0.88 with IVF. No significant electrolyte abnormalities. Held home diuretic. Improved. Hypertension: Labile blood pressure is better controlled today. Held home diuretic. Started nifedipine with good effect IBS: Chronic, stable per patient. Continue home dicyclomine and cholestyramine. Hold home Librax with possible benzo reaction. Symptoms stable. Pt Condition on Discharge: Stable Discharge Disposition: Discharge Home Discharge Time: > 30 minutes Discharge Instructions DIET: Follow Instructions for: Heart Healthy Diet Activities you can perform: Regular-No Restrictions Follow up Referrals: Cardiology - 1 Week with Alena Guerra MD PCP Follow-up - 1 Week with Cleo Owens MD New Medications: Nifedipine ER 24 HR (Nifedipine ER 24 HR) 30 Mg Tab 30 MG PO DAILY for Blood Pressure Management, #30 TAB Continued Medications: Hyvmzuxevd-Icdkhyyhoqbeg-Pwuoathr (Fioricet) 50-300-40 Mg Cap 1 CAP PO Q4H PRN for HEADACHE, #10 CAP 0 Refills Cholecalciferol (Vitamin D) 400 Unit/Ml Drops 400 UNITS PO DAILY, #1 BOTTLE Cholestyramine (Questran) 4 Gm/Dose Powd 4 GM PO DAILY for Dyslipidemia, #1 CAN 0 Refills 1 level scoopful of powder contains 4 grams of cholestyramine. Dicyclomine (Dicyclomine) 20 Mg Tab 20 MG PO TID for Bowel Management, #90 TAB 0 Refills Omeprazole (Omeprazole) 20 Mg Tab 20 MG PO BID, #30 TAB 0 Refills Rizatriptan (Maxalt) 10 Mg Tab 10 MG PO DAILY for Headaches, #30 Sertraline (Zoloft) 100 Mg Tab 100 MG PO 1 1/2 daily for health, #45 TAB 2 Refills Sumatriptan (Sumatriptan) 25 Mg Tab 25 MG PO ONCE PRN for MIGRAINE HEADACHE, TAB 0 Refills If a satisfactory response has not been obtained at 2 hours, a second dose may be administered Timolol Maleate (Ophth) (Timolol Maleate) 0.25 % Vidhya 1 DROP EACH EYE HS for health, #1 BOTTLE Discontinued Medications: Chlordiazepoxide-Clidinium (Librax) 5-2.5 Mg Cap 1 CAP PO TID, #90 CAP 0 Refills Diazepam (Valium) 5 Mg Tab 5 MG PO BID PRN for anxiety, #60 TAB 2 Refills Triamterene-Hydrochlorothiazide (Dyazide) 37.5-25 Mg Cap 1 CAP PO DAILY for Blood Pressure Management, #30 CAP 0 Refills Rola Dillon PA-C Feb 18, 2017 5:08 pm
--- NOTE | 2017-02-18 18:33 | MP ---
cc: SHARMAINE MEDINA DATE OF SURGERY 02/11/17 PROCEDURE Loop recorder insertion HISTORY Mrs. Mccabe is a 71-year-old female, episode of syncope. Negative electrophysiology study who will undergo loop recorder insertion. The risks, the nature and the benefit of the procedure are clearly stated to her. Prior to electrophysiology study, risks include pneumothorax, infection and even . She understood and agreed to proceed. PROCEDURE IN DETAIL After informed consent was obtained prior to electrophysiology study, the patient was kept on the table where she was prepped and draped in the usual sterile fashion. Conscious sedation was initiated and maintained throughout the procedure by anesthesiologist. Once sedation verified, the left parasternal area was anesthetized with 2% Xylocaine. Using a cutter, less than a centimeter incision was made. Subsequently, the loop was injected under the skin. After adequate sensing obtained, the border was reapproximated using Dermabond and Steri-Strips. No incident reported. The patient tolerated procedure. Blood loss minimal. IMPLANTED HARDWARE The implanted loop recorder is a [employer] model number LNQ11, serial [id number]. Sensing was at 0.49 mV. SETTING the device set for daniela under 40, tachy over 160. CONCLUSION Successful loop recorder insertion, COMMENT AND RECOMMENDATIONS The patient is going to be monitored, can be discharged home later today. MD STEPHANIE Arizmendi/ /1:49 PM /6:20 PM
== END 2017-02-18 16:00 | disposition home or self-care (01) ==
LOC: NEPE 09:07 → NEDA 11:33 → NEPFCDU 12:21 → HCIS 02-17 15:22 → NEPFCDU 02-17 16:10 → HCIS 02-18 11:39
PROVIDERS: ADMIT Internal Medicine; ATTEND Internal Medicine
DX: R55 Syncope and collapse (principal); S00.83XA Contusion of other part of head, initial encounter; Y93.K1 Activity, walking an animal; W18.39XA Other fall on same level, initial encounter; F41.9 Anxiety disorder, unspecified; F32.9 Major depressive disorder, single episode, unspecified; I10 Essential (primary) hypertension; K57.92 Diverticulitis of intestine, part unspecified, without perforation or abscess without bleeding; K58.9 Irritable bowel syndrome, unspecified; Z87.440 Personal history of urinary (tract) infections; F17.210 Nicotine dependence, cigarettes, uncomplicated; Z79.899 Other long term (current) drug therapy; D69.6 Thrombocytopenia, unspecified; R94.01 Abnormal electroencephalogram [EEG]; R94.31 Abnormal electrocardiogram [ECG] [EKG]; I51.7 Cardiomegaly; E86.0 Dehydration; R00.1 Bradycardia, unspecified; G43.909 Migraine, unspecified, not intractable, without status migrainosus
CPT/HCPCS: 33282; 70450; 70486; 71010; 71101; 73130; 76937; 80048; 80053; 80076; 80307; 82306; 82550; 82607; 82746; 82948; 83735; 84484; 85025; 85610; 85730; 93005; 93225; 93226; 93306; 93620; 93623; 93880; 95819; 97110; 97162; 97530; 99285; C1730; C1764; G0378; G8987; G8988; J0690; J1644; J2250; J3010

== ENCOUNTER 2017-04-01 07:06 | Emergency (ER) | payer MEDICARE, OTHER ==
[~2017-04-01] VITALS: Ht 157.5 cm; Wt 58.3 kg
[~2017-04-01 07:06] MED LIST changes: -DIAZ5 PO; -DYAZ37.5 PO; -LIBRAX PO; +NIFE30TA8 PO; -OMEP20TA PO; +OMEP20TA93 PO; -TRIA37.5 PO
[2017-04-01 07:11] VITALS: BP 180/99; PULSE 81; RESP 18; TEMP 98.3; O2SAT 99
[2017-04-01] MEDS ORDERED: LIBRAX PO (07:27)
--- NOTE | 2017-04-01 07:29 | PD ---
HPI Chief Complaint: Abdominal Pain Time Seen by Provider: 07:22 Travel History International Travel<30 days: No Contact w/Intl Traveler<30days: No Traveled to known affect area: No History of Present Illness HPI The patient was seen and examined in the presence of the nurse. This patient complains of abdominal pain. She has rather generalized abdominal pain. History of IBS. She says this is worse than her usual IBS pains. Duration 2 weeks. She denies vomiting or diarrhea or constipation or fever. Has had multiple surgeries including appendectomy and partial bowel resection and hysterectomy. Symptoms severity is moderate. No alleviating factors. No Exacerbating factors. PFSH Past Medical History Hx Anticoagulant Therapy: No Arthritis: Yes Asthma: No Blood Disorders: No Anxiety: Yes Depression: Yes Cancer: No Cardiovascular Problems: Yes (HTN) High Cholesterol: No Chest Pain: No Congestive Heart Failure: No COPD: No Cerebrovascular Accident: No Diabetes: No Diminished Hearing: No Diverticulitis: Yes Endocrine: No Gastrointestinal Disorders: Yes (IBS) GERD: No Genitourinary: No Headaches: Yes Hepatitis: No Hiatal Hernia: No Hypertension: Yes Immune Disorder: No Kidney Stones: Yes Musculoskeletal: Yes Neurologic: No Psychiatric: Yes Reproductive: No Respiratory: No Migraines: Yes Myocardial Infarction: No Renal Failure: No Seizures: No Sleep Apnea: No Thyroid Disease: No Ulcer: No Menopausal: Yes Past Surgical History Abdominal Surgery: Yes (Bowel resection) Appendectomy: Yes Cardiac Surgery: No Cholecystectomy: Yes Ear Surgery: No Endocrine Surgery: No Eye Surgery: No Genitourinary Surgery: No Gynecologic Surgery: Yes (HYSTERECTOMY) Hysterectomy: Yes Oral Surgery: No Thoracic Surgery: No Other Surgery: Yes Social History Alcohol Use: No Tobacco Use: Yes (1 ppd of cigs) Substance Use: No Allergies-Medications (Allergen,Severity, Reaction): Coded Allergies: No Known Allergies (Verified Adverse Reaction, Unknown, 04/01/17) Reported Meds & Prescriptions Reported Meds & Active Scripts Active Flagyl (Metronidazole) 500 Mg Tab 500 Mg PO QID Cipro (Ciprofloxacin HCl) 500 Mg Tab 500 Mg PO BID Tramadol (Tramadol HCl) 50 Mg Tab 50 Mg PO Q6H PRN Zofran (Ondansetron HCl) 4 Mg Tab 4 Mg PO Q6HR PRN Zoloft (Sertraline HCl) 100 Mg Tab 100 Mg PO 1 1/2 DAILY Reported Librax (Chlordiazepoxide/Clidinium) 5-2.5 Mg Cap 1 Cap PO TID Vitamin D (Cholecalciferol) 400 Unit/Ml Drops 400 Units PO DAILY Omeprazole 20 Mg Tab 20 Mg PO BID Sumatriptan (Sumatriptan Succinate) 25 Mg Tab 25 Mg PO ONCE PRN If a satisfactory response has not been obtained at 2 hours, a second dose may be administered Timolol Maleate (Timolol Maleate (Ophth)) 0.25 % Vidhya 1 Drop EACH EYE HS Maxalt (Rizatriptan Benzoate) 10 Mg Tab 10 Mg PO DAILY Dicyclomine (Dicyclomine HCl) 20 Mg Tab 20 Mg PO TID Questran (Cholestyramine) 4 Gm/Dose Powd 4 Gm PO DAILY 1 level scoopful of powder contains 4 grams of cholestyramine. Review of Systems General / Constitutional: No: Fever Eyes: No: Visual changes HENT: No: Headaches Cardiovascular: No: Chest Pain or Discomfort Respiratory: No: Shortness of Breath Gastrointestinal: Positive: Abdominal Pain Genitourinary: No: Dysuria Musculoskeletal: No: Pain Skin: No Rash Neurologic: No: Weakness Psychiatric: No: Depression Endocrine: No: Polydipsia Hematologic/Lymphatic: No: Easy Bruising Physical Exam Narrative GENERAL: Well-nourished, well-developed patient in no apparent distress. SKIN: Focused skin assessment reveals no rash and nodules. Skin is Warm and dry. HEAD: Atraumatic. Normocephalic. EYES: Pupils equal and round. No scleral icterus. No injection or drainage. ENT: No nasal bleeding or discharge. Mucous membranes pink and moist. NECK: Trachea midline. No JVD. CARDIOVASCULAR: Regular rate and rhythm. No murmur appreciated. RESPIRATORY: No accessory muscle use. Clear to auscultation. Breath sounds equal bilaterally. GASTROINTESTINAL: Abdomen soft, non-tender, nondistended. Hepatic and splenic margins not palpable. MUSCULOSKELETAL: No obvious deformities. No clubbing. No cyanosis. No edema. NEUROLOGICAL: Awake and alert. No obvious cranial nerve deficits. Motor grossly within normal limits. Normal speech. PSYCHIATRIC: Appropriate mood and affect; insight and judgment normal. Data Data Last Documented VS Vital Signs Date Time Temp Pulse Resp B/P (MAP) Pulse Ox O2 Delivery O2 Flow Rate FiO2 04/01/17 08:26 72 18 156/79 (104) 97 Room Air 04/01/17 07:11 98.3 Orders Orders Complete Blood Count With Diff (04/01/17 07:22) Comprehensive Metabolic Panel (04/01/17 07:22) Lipase (04/01/17 07:22) Prothrombin Time / Inr (Pt) (04/01/17 07:22) Act Partial Throm Time (Ptt) (04/01/17 07:22) Ct Abd/Pel W Iv Contrast(Rout) (04/01/17 07:22) Iv Access Insert/Monitor (04/01/17 07:22) NPO (04/01/17 07:22) Sodium Chloride 0.9% Flush (Ns Flush) (04/01/17 07:30) Iohexol 350 Inj (Omnipaque 350 Inj) (04/01/17 08:18) Labs Laboratory Tests Test 04/01/17 07:35 White Blood Count 10.3 TH/MM3 Red Blood Count 4.33 MIL/MM3 Hemoglobin 13.4 GM/DL Hematocrit 41.4 % Mean Corpuscular Volume 95.6 FL Mean Corpuscular Hemoglobin 30.8 PG Mean Corpuscular Hemoglobin Concent 32.2 % Red Cell Distribution Width 14.2 % Platelet Count 158 TH/MM3 Mean Platelet Volume 8.3 FL Neutrophils (%) (Auto) 77.4 % Lymphocytes (%) (Auto) 12.7 % Monocytes (%) (Auto) 7.5 % Eosinophils (%) (Auto) 2.0 % Basophils (%) (Auto) 0.4 % Neutrophils # (Auto) 8.0 TH/MM3 Lymphocytes # (Auto) 1.3 TH/MM3 Monocytes # (Auto) 0.8 TH/MM3 Eosinophils # (Auto) 0.2 TH/MM3 Basophils # (Auto) 0.0 TH/MM3 CBC Comment DIFF FINAL Differential Comment Prothrombin Time 10.3 SEC Prothromb Time International Ratio 0.9 RATIO Activated Partial Thromboplast Time 26.1 SEC Blood Urea Nitrogen 18 MG/DL Creatinine 0.80 MG/DL Random Glucose 114 MG/DL Total Protein 6.9 GM/DL Albumin 3.4 GM/DL Calcium Level 8.6 MG/DL Alkaline Phosphatase 68 U/L Aspartate Amino Transf (AST/SGOT) 8 U/L Alanine Aminotransferase (ALT/SGPT) 19 U/L Total Bilirubin 0.5 MG/DL Sodium Level 140 MEQ/L Potassium Level 3.2 MEQ/L Chloride Level 108 MEQ/L Carbon Dioxide Level 24.8 MEQ/L Anion Gap 7 MEQ/L Estimat Glomerular Filtration Rate 70 ML/MIN Lipase 163 U/L MDM Medical Decision Making Medical Screen Exam Complete: Yes Emergency Medical Condition: Yes Medical Record Reviewed: Yes Differential Diagnosis Colitis, obstruction, IBS Narrative Course I have reviewed the patient's electronic medical record. Patient was admitted one month ago here for syncope IV placed CBC is normal metabolic profile is normal LFT's are normal lipase is normal Coagulation studies are normal CT of abdomen and pelvis with IV contrast suggests some acute diverticulitis of the sigmoid colon. No perforation or obstruction. She does have some constipation with stool in the rectum. There is some minor ileus changes. She looks comfortable and is a soft benign abdomen. Stable for outpatient follow- up. She has a GI appointment in 2 days coincidently so will have good follow- up. I prescribed her something for nausea and pain as well as Cipro and Flagyl Diagnosis Primary Impression: Diverticulitis large intestine w/o perforation or abscess w/o bleeding Additional Instructions: The patient was advised to follow up with their physician and return if they worsen. The patient was warned about potential sedation for the medications they will receive on prescription. Med/Other Pt SpecificInfo: Prescription(s) given Scripts Metronidazole (Flagyl) 500 Mg Tab 500 MG PO QID for Infection, #28 TAB 0 Refills Prov: Jm Martinez MD 04/01/17 Ciprofloxacin (Cipro) 500 Mg Tab 500 MG PO BID for Infection, #14 TAB 0 Refills Prov: Jm Martinez MD 04/01/17 Tramadol (Tramadol) 50 Mg Tab 50 MG PO Q6H Y for PAIN, #15 TAB 0 Refills Prov: Jm Martinez MD 04/01/17 Ondansetron (Zofran) 4 Mg Tab 4 MG PO Q6HR Y for NAUSEA OR VOMITING, #12 TAB 0 Refills Prov: Jm Martinez MD 04/01/17 Disposition: 01 DISCHARGE HOME Condition: Stable Jm Martinez MD Apr 01, 2017 07:29
[2017-04-01] MEDS ORDERED: SODIUM CHLORIDE 0.9% FLUSH 10 ML FLUSH IV FLUSH PRN (07:30)
[2017-04-01 07:42] LABS: BASOPHIL % 0.4 % (0.0-2.0); EOSINOPHIL # 0.2 TH/MM3 (0-0.4); HEMATOCRIT 41.4 % (35.0-46.0); HEMO FLAGS DIFF FINAL; LYMPH % 12.7 % (9.0-44.0); LYMPHOCYTE # 1.3 TH/MM3 (1.0-4.8); MEAN CELL VOLUME 95.6 FL (80.0-100.0); MEAN CORPUSCULAR HEMOGLOBIN 30.8 PG (27.0-34.0); MEAN CORPUSCULAR HGB CONC 32.2 % (32.0-36.0); MONO % 7.5 % (0.0-8.0); NEUT % 77.4 % (16.0-70.0); PLATELET COUNT 158 TH/MM3 (150-450); RED BLOOD COUNT 4.33 MIL/MM3 (4.00-5.30); RED CELL DISTRIBUTION WIDTH 14.2 % (11.6-17.2); WHITE BLOOD COUNT 10.3 TH/MM3 (4.0-11.0)
[2017-04-01 07:53] LABS: CHLORIDE 108 MEQ/L (98-107); POTASSIUM 3.2 MEQ/L (3.5-5.1); SODIUM (NA) 140 MEQ/L (136-145)
[2017-04-01 07:56] LABS: ANION GAP 7 MEQ/L (5-15); BICARBONATE 24.8 MEQ/L (21.0-32.0)
[2017-04-01 07:57] LABS: BLOOD UREA NITROGEN 18 MG/DL (7-18)
[2017-04-01 07:58] LABS: APTT (PATIENT) 26.1 SEC (24.3-30.1); INTERNATIONAL NORMALIZED RATIO 0.9 RATIO; PROTHROMBIN TIME - PATIENT 10.3 SEC (9.8-11.6)
[2017-04-01 07:59] LABS: ALT (GPT) 19 U/L (10-53); AST (GOT) 8 U/L (15-37); GLOMERULAR FILTRATION RATE 70 ML/MIN (>89)
[2017-04-01 08:01] LABS: TOTAL BILIRUBIN ADULT 0.5 MG/DL (0.2-1.0)
[2017-04-01 08:02] LABS: ALKALINE PHOSPHATASE 68 U/L (45-117)
[2017-04-01] MEDS ORDERED: IOHEXOL 350 MG/ML 10 ML VIAL (for RAD DIAG) IVCONTRAST ONE (08:18)
[2017-04-01 08:26] VITALS: BP 156/79; PULSE 72; RESP 18; O2SAT 97
--- NOTE | 2017-04-01 08:58 | RADRPT ---
EXAM DATE/TIME: 04/01/2017 08:12 [facility] COMPARISON: CT ABDOMEN & PELVIS W CONTRAST, June 01, 2011, 19:20. INDICATIONS : Lower abdominal pain with nausea. IV CONTRAST: 85 cc Omnipaque 350 (iohexol) IV ORAL CONTRAST: No oral contrast ingested. RADIATION DOSE: 6.41 CTDIvol (mGy) MEDICAL HISTORY : Hypertension. Diverticulitis. Renal calculi. SURGICAL HISTORY : Appendectomy. Cholecystectomy.Hysterectomy.Bowel resection. ENCOUNTER: Initial ACUITY: 3 weeks PAIN SCALE: 8/10 LOCATION: lower quadrant TECHNIQUE: Volumetric scanning of the abdomen and pelvis was performed. Using automated exposure control and ad justment of the mA and/or kV according to patient size, radiation dose was kept as low as reasonably achievable to obtain optimal diagnostic quality images. DICOM format image data is available electro nically for review and comparison. FINDINGS: LOWER LUNGS: The visualized lower lungs are clear. LIVER: Release 5 small low-density liver lesions, all of which are likely cysts. Several of these were prese nt previously. There is mild intra-and extrahepatic biliary ductal dilatation with common duct diamet er approaching 9-10 mm post cholecystectomy. This appearance is stable. SPLEEN: Normal size without lesion. PANCREAS: Within normal limits. KIDNEYS: Bilateral renal cysts, largest a 2 cm cyst arising partially exophytically from the anterior lateral lower pole cortex of the left kidney. ADRENAL GLANDS: There is stable mild nodular prominence of the apex of the left adrenal gland and a miniscule low den sity nodule is present in the medial limb of the right adrenal. VASCULAR: Atherosclerotic changes with mild ectasia of the infrarenal abdominal aorta. No evidence of major ves eric occlusion BOWEL/MESENTERY: Diverticular involvement of the distal colon with inflammatory changes adjacent to the sigmoid in the left anterior pelvis consistent with active diverticulitis. Minimal nonloculated paracolic fluid. No definite extraluminal gas. The rectum is markedly dilated with stool. The proximal bowel structures are mildly distended ABDOMINAL WALL: Within normal limits. RETROPERITONEUM: There is no lymphadenopathy. BLADDER: No wall thickening or mass. REPRODUCTIVE: Uterus surgically absent. No evidence of adnexal mass. INGUINAL: There is no lymphadenopathy or hernia. MUSCULOSKELETAL: Within normal limits for patient age. CONCLUSION: Sigmoid diverticulitis. Some component of probable adynamic ileus of the bowel Benign-appearing hepatic, renal and adrenal lesions. Dwayne Alvarado MD on April 01, 2017 at 8:34 Board Certified Radiologist. This report was verified electronically.
[2017-04-01] MEDS ORDERED: TRAM50TA PO (09:05)
[2017-04-01] MEDS ORDERED: CIPR-9 PO (09:05)
[2017-04-01] MEDS ORDERED: METR-1 PO (09:05)
[2017-04-01] MEDS ORDERED: ZOFR4TAB PO (09:05)
== END 2017-04-01 09:16 | disposition home or self-care (01) ==
LOC: PHED 07:06
DX: K57.32 Diverticulitis of large intestine without perforation or abscess without bleeding (principal); I10 Essential (primary) hypertension; F32.9 Major depressive disorder, single episode, unspecified; K58.9 Irritable bowel syndrome, unspecified; F17.210 Nicotine dependence, cigarettes, uncomplicated; Z87.442 Personal history of urinary calculi; Z79.899 Other long term (current) drug therapy
CPT/HCPCS: 74177; 80053; 83690; 85025; 85610; 85730; 99285; Q9967